=== PATIENT | male | born 1970 | race African-American/Black ===

== ENCOUNTER 2019-07-31 21:27 | Inpatient (IN) | payer BC ==
[2019-07-31 21:45] LABS: #Basophils 0.1 thou/uL (0.0-0.2); #Eosinphils 0.1 thou/uL (0.0-0.7); #Lymphocytes 3.2 thou/uL (1.20-3.40); #Monocytes 2.2 thou/uL (0.11-0.59); #Neutrophils 13.1 thou/uL (1.40-6.50); %Basophils 0.7 % (0.0-1.0); %Eosinophils 0.5 % (0.0-10.0); %Lymphocytes 17.2 % (21.0-51.0); %Monocytes 11.7 % (0.0-10.0); %Neutrophils 69.9 % (42.0-75.0); Hemoglobin 13.6 g/dL (14.0-18.0); Mean Corpuscular HGB CONC 33.9 g/dL (32.0-36.0); Mean Corpuscular Hemoglobin 29.4 pg (27.0-31.0); Mean Corpuscular Volume 86.7 fL (78.0-98.0); Platelet Count 379 thou/uL (130-400); RBC Distribution Width 13.5 % (11.5-14.5); Red Blood Cell (RBC) Count 4.63 mill/uL (4.70-6.10); White Blood Cell (WBC) Count 18.7 thou/uL (4.8-10.8)
[2019-07-31 22:13] LABS: ALT (SGPT) 16 U/L (8-55); AST (SGOT) 18 U/L (5-34); Albumin 2.4 g/dL (3.5-5.0); Alkaline Phosphatase 82 U/L (40-110); Anion Gap 11 mmol/L (10-20); BUN (Urea Nitrogen) 19 mg/dL (8.9-20.6); Bilirubin, Total 0.5 mg/dL (0.2-1.2); Calc. Creatinine Clearance 0 mL/min (70-130); Calcium 8.2 mg/dL (7.8-10.44); Carbon Dioxide 30 mmol/L (22-29); Chloride 102 mmol/L (98-107); Estimated GFR-MDRD Greater than 90; Globulin 3.3 g/dL (2.4-3.5); Glucose 137 mg/dL (70-105); Potassium 3.8 mmol/L (3.5-5.1); Protein, Total 5.7 g/dL (6.0-8.3); Sodium 139 mmol/L (136-145)
--- NOTE | 2019-07-31 23:30 | RAD ---
Exam: Chest one view HISTORY:Right-sided chest Comparison: 07/13/2003 FINDINGS: Cardiac silhouette: Normal Aorta: Unremarkable Pulmonary vessels: Normal Costophrenic angles: Clear LUNGS: Diminished lung volumes which may be due to poor inspiratory effort. Bibasilar interstitial op acities, right greater than left. Pneumothorax: None Osseous abnormalities: None IMPRESSION: Bibasilar interstitial opacities right greater than left. Correlate for atelectasis versu s aspiration/pneumonia.
[2019-08-01 00:03] LABS: Bacteria/HPF None Seen HPF (None Seen); Bilirubin Negative (Negative); Blood, Urine 2+ (Negative); Clarity Clear (Clear); Glucose, Urine (Dipstick) Normal (Negative); Leukocyte Negative Leu/uL (Negative); Mucous/LPF Rare LPF (<2+); Nitrite Negative (Negative); Protein, Urine (Dipstick) 300 mg/dL (Neg-Trace); Squamous Epithelial None Seen HPF (0-3); Urobilinogen Normal mg/dL (Less than 2); WBC/HPF 0-3 HPF (0-3)
--- NOTE | 2019-08-01 00:04 | CT ---
Exam: Abdomen CT without contrast Pelvic CT without contrast HISTORY: Right flank COMPARISON: None FINDINGS: Abdomen CT: Lung bases:Bibasilar consolidation may represent atelectasis, and/or pneumonia. Heart size: Cardiomegaly. No significant pericardial fluid Aorta: Limited evaluation due to technique. No evidence of dilatation Solid organs: Limited evaluation due to technique. Grossly no solid organ abnormality. 1.2 cm hypoden se nodule in the right adrenal gland has attenuation coefficient of -1 Hounsfield units, compatible with adenoma. Lymph nodes: No gastrohepatic, retrocrural or periportal lymphadenopathy Gallbladder: Contracted due to nonfasting state Mesentery: No mass, lymphadenopathy, free air or free fluid Kidneys: Horseshoe kidney. Bilaterally no hydronephrosis, nephrolithiasis or perinephric fat strandin g. Bilateral ureters have a normal caliber. No hydroureter, periureteral fat stranding or ureterolithiasis Alimentary canal: Limited evaluation due to the lack of oral contrast. There are a few proximal small bowel loops that are mildly dilated. There is a anterior abdominal wall hernia containing a segment of small bowel through the defect. The herniated loop does not appear to be incarcerated. How ever, the loops proximal to this focal herniation are slightly prominent. The loops distal to the herniation are decompressed. A partial obstructive process cannot be excluded. Unremarkable ileocecal junction. Normal caliber air-filled retrocecal appendix. Scattered fecal material in a nondistended, nondilated colon. CT PELVIS: No mass, adenopathy, free air or free fluid. Urinary bladder: Unremarkable. Osseous structures: No lytic or blastic lesions IMPRESSION: 1. Ventral abdominal wall hernia containing a segment of small bowel through the defect. The small randy wel segment does not appear to be incarcerated. However, there may be an associated partial small bowel obstruction. General surgical consultation is recommended. 2. Bibasilar lung parenchymal opacities which may represent atelectasis or pneumonia. Results of study discussed with Devika Ahuja08/01/2019 at 12:02 AM Code CR
[2019-08-01] MEDS ORDERED: cefTRIAXone\\ROCEPHIN 2 GM VIAL ONE (00:16)
[2019-08-01] MEDS ORDERED: Morphine 4 MG/ML VIAL ONE ×2 (00:43→01:55)
[2019-08-01] MEDS ORDERED: Azithromycin 500 MG VIAL ONE (00:50)
[2019-08-01 00:56] LABS: Lactic Acid 0.7 mmol/L (0.5-2.2)
[2019-08-01] MEDS ORDERED: Enoxaparin Sodium 100 MG/ML SYRINGE ONE (01:55)
[2019-08-01 03:07] LABS: Troponin I Less than 0.010 ng/mL (< 0.028)
[2019-08-01 06:10] LABS: Troponin I Less than 0.010 ng/mL (< 0.028)
[2019-08-01] MEDS ORDERED: Ondansetron PF 4 MG/2 ML Vial IVP PRN (07:08)
[2019-08-01] MEDS ORDERED: Cepastat Lozenges 1 LOZ PO PRN (07:10)
[2019-08-01] MEDS ORDERED: hydrALAZINE 20 MG/ML VIAL SLOW IVP PRN (07:10)
[2019-08-01] MEDS ORDERED: Sodium Chloride 0.65% Nasal 44 ML BOT EA NARE PRN (07:10)
[2019-08-01] MEDS ORDERED: Sodium Chloride 0.9% 1,000 ML IV SCH (07:15)
--- NOTE | 2019-08-01 07:53 | CT ---
PRELIMINARY REPORT/[facility]/EMERGENCY AFTER HOURS PROCEDURE This report was discussed with Yuko Pandya MD by Iris Duenas on Aug 01, 2019 01:23:00 CUSTOMER ADVISOR SPECIALIST. Addendum electronically signed by Iris Duenas on August 01, 2019 1:24:56 AM CUSTOMER ADVISOR SPECIALIST EXAM: CTA Chest with Intravenous Contrast CLINICAL HISTORY: ER 18... 49M presents to the ED with c/o right sided chest/Abdominal pain. Elevated D-dimer TECHNIQUE: Axial CTA images of the chest with intravenous contrast. MIP reconstructed images were created and re viewed. CONTRAST: With; ISOVUE 370, 80ml COMPARISON: None provided. FINDINGS: PULMONARY ARTERIES Right lower lobe segmental and subsegmental pulmonary artery filling defects. Lef t lower lobe subsegmental pulmonary arterial filling defects. AORTA No thoracic aortic aneurysm or dissection. LUNGS Consolidation, right middle lobe and right lower lobe. Bibasilar atelectasis. Small left upper and lower lobe subpleural blebs. 4 mm nodule left lung base. PLEURAL SPACES No pleural effusion. No pneumothorax. HEART AND MEDIASTINUM No cardiomegaly. no evidence of right heart strain. No significant pericardial effusion. LYMPH NODES No lymphadenopathy. BONES No focal osseous abnormality or acute fracture. CHEST WALL AND UPPER ABDOMEN Gaseous distention in the colon. Images through the upper abdomen are otherwise unremarkable. The chest wall is unremarkable. IMPRESSION: 1. Positive for pulmonary emboli (segmental and subsegmental) predominantly within the right lower, right middle and left lower lobes. 2. Consolidation within the right middle lobe and right lower lobe which may indicate pulmonary infa rction given the underlying pulmonary emboli, however underlying multifocal pneumonia is not excluded. Recommend follow-up to resolution. 3. 4 mm left lower lobe pulmonary nodule. Correlate with risk factors for malignancy and if high ri sk, consider follow-up in one year. ELECTRONICALLY SIGNED BY: Jayjay Madden M.D. Aug 01, 2019 1:21:37 AM CUSTOMER ADVISOR SPECIALIST This report is intended for review by the ordering physician only, in accordance of law. If you recei ve this report in error, please call [facility] at [phone]. FINAL REPORT CT ANGIOGRAM CHEST: DATE: 08/01/2019. COMPARISON: None. HISTORY: Right-sided chest pain, assess for pulmonary embolism. FINDINGS: CT angiogram chest obtained with IV contrast including coronal and oblique sagittal 3D reformatted im aging. No significant pleural, pericardial, or mediastinal fluid. Imaged upper abdomen appears grossly unremarkable. No axillary lymphadenopathy. There are mildly enlarged mediastinal lymph nodes, including right parat syl nodes measuring up to 1.2 cm in short axis dimension, 1.4 cm prevascular node, 1.4 cm left hilar node, 2.0 cm right hilar node, and 1.4 cm subcarinal node. Evidence of acute pulmonary arterial embolism is noted bilaterally involving the segmental and subseg mental pulmonary arteries of the right lower lobe and left lower lobe. Probable distal PE noted in right middle lobe as well. No pneumothorax is evident. There is a focal inferior posterior area of consolidation within the lingula. There is consolidation with air bronchogram formation within the inferior aspect of the right middle lobe and the posterior inferior aspect of both the right and left lower lobe, right greater than left. Incidental note is made of a 4 mm nodule within the left lower lobe on axial image 77 of uncertain cl inical significance. IMPRESSION: Bilateral pulmonary arterial emboli as detailed above. Multifocal airspace disease/consolidation whic h may signify pulmonary infarction and/or infectious pneumonitis/aspiration. Nonspecific lymphadenopathy noted within the chest. Recommend follow-up CT examination of the chest in 3-6 months following treatment to document resolution. Transcribed Date/Time: 08/01/2019 8:44 AM
[2019-08-01] MEDS ORDERED: Famotidine/PF 20 mg/2ml Vial SLOW IVP SCH (09:00)
[2019-08-01] MEDS ORDERED: Enoxaparin Sodium 60 MG/0.6 ML SYRINGE SC SCH (09:00)
[2019-08-01] MEDS ORDERED: Enoxaparin Sodium 40 MG/0.4 ML SYRINGE SC SCH ×2 (09:00)
[2019-08-01] MEDS: Losartan 25 MG TAB PO SCH ×2 (09:07→21:52)
--- NOTE | 2019-08-01 09:30 | PDOC.GSPN ---
Surgery Progress Note: Subj - Subjective Patient reports: tolerating a regular diet Narrative: Mr. Warner is a pleasant 49 year old male who presents today with new, right-sided "crampy" pain that started yesterday. He took Thi- [place] yesterday for the pain, which helped initially. However, the pain returned this morning with increased severity. His pain is a 10/10 currently, non-radiating, and is exacerbated with movement. He also reports shortness of breath, subjective fever yesterday, mild bloating, and absence of bowel movement in 2 days. Patient denies nausea, vomiting, previous hernia, or changes in urination. PMH: CKD, HTN, Hyperlipidemia PSH: None Allergies: NKA Surgery Progress Note: Obj - Vital signs Vital signs: Vital Signs - Most Recent Temp Pulse Resp BP Pulse Ox 97.6 F 93 15 163/88 H 94 L 08/01/19 07:20 08/01/19 07:08 08/01/19 07:20 08/01/19 07:08 08/01/19 07:08 - Physical Exam General: no distress Neck: no lymphadectomy, no masses Cardiovascular: regular rate and rhythm, no murmur Respiratory: clear to auscultation, normal expansion (Slight discomfort on right side with deep inspiration.) Abdomen: soft, non tender, positive bowel sounds (Present in all 4 quadrants, low and rumbling in nature.), distended, other Hernia: umbilical (Ventral hernia palpable superior to the umbilicus that is freely reducible and non-tender.) Musculoskeletal: normal posture, other (Very tender with palpation of right ribcage (~6-7th ribs at the midaxillary line)) Psychiatric: oriented to time, oriented to person, oriented to place Surgery Progress Note: Results - Labs Result Diagrams: 07/31/19 21:37 07/31/19 21:37 Lab results: Laboratory Results - last 24 hr 07/31/19 07/31/19 07/31/19 21:37 21:37 21:37 WBC 18.7 H RBC 4.63 L Hgb 13.6 L Hct 40.1 L MCV 86.7 MCH 29.4 MCHC 33.9 RDW 13.5 Plt Count 379 MPV 7.0 L Neutrophils % 69.9 Lymphocytes % 17.2 L Monocytes % 11.7 H Eosinophils % 0.5 Basophils % 0.7 Neutrophils # 13.1 H Lymphocytes # 3.2 Monocytes # 2.2 H Eosinophils # 0.1 Basophils # 0.1 D-Dimer Sodium 139 Potassium 3.8 Chloride 102 Carbon Dioxide 30 H Anion Gap 11 BUN 19 Creatinine 0.95 Estimated GFR (MDRD) Greater than 90 Glucose 137 H Lactic Acid Calcium 8.2 Total Bilirubin 0.5 AST 18 ALT 16 Alkaline Phosphatase 82 Troponin I 0.012 Serum Total Protein 5.7 L Albumin 2.4 L Globulin 3.3 Albumin/Globulin Ratio 0.7 L Lipase Urine Color Urine Clarity Urine pH Ur Specific Comfrey Urine Protein Urine Glucose (UA) Urine Ketones Urine Blood Urine Nitrite Urine Bilirubin Urine Urobilinogen Ur Leukocyte Esterase Urine RBC Urine WBC Ur Squamous Epith Cells Urine Bacteria Hyaline Casts Urine Mucus 07/31/19 07/31/19 07/31/19 21:37 23:25 23:45 WBC RBC Hgb Hct MCV MCH MCHC RDW Plt Count MPV Neutrophils % Lymphocytes % Monocytes % Eosinophils % Basophils % Neutrophils # Lymphocytes # Monocytes # Eosinophils # Basophils # D-Dimer 2.38 H Sodium Potassium Chloride Carbon Dioxide Anion Gap BUN Creatinine Estimated GFR (MDRD) Glucose Lactic Acid Calcium Total Bilirubin AST ALT Alkaline Phosphatase Troponin I Serum Total Protein Albumin Globulin Albumin/Globulin Ratio Lipase 46 Urine Color Light-Yellow Urine Clarity Clear Urine pH 6.0 Ur Specific Comfrey 1.018 Urine Protein 300 A Urine Glucose (UA) Normal Urine Ketones Negative Urine Blood 2+ A Urine Nitrite Negative Urine Bilirubin Negative Urine Urobilinogen Normal Ur Leukocyte Esterase Negative Urine RBC 11-20 A Urine WBC 0-3 Ur Squamous Epith Cells None Seen Urine Bacteria None Seen Hyaline Casts 21-50 A Urine Mucus Rare 08/01/19 08/01/19 08/01/19 00:24 02:32 05:22 WBC RBC Hgb Hct MCV MCH MCHC RDW Plt Count MPV Neutrophils % Lymphocytes % Monocytes % Eosinophils % Basophils % Neutrophils # Lymphocytes # Monocytes # Eosinophils # Basophils # D-Dimer Sodium Potassium Chloride Carbon Dioxide Anion Gap BUN Creatinine Estimated GFR (MDRD) Glucose Lactic Acid 0.7 Calcium Total Bilirubin AST ALT Alkaline Phosphatase Troponin I Less than 0.010 Less than 0.010 Serum Total Protein Albumin Globulin Albumin/Globulin Ratio Lipase Urine Color Urine Clarity Urine pH Ur Specific Comfrey Urine Protein Urine Glucose (UA) Urine Ketones Urine Blood Urine Nitrite Urine Bilirubin Urine Urobilinogen Ur Leukocyte Esterase Urine RBC Urine WBC Ur Squamous Epith Cells Urine Bacteria Hyaline Casts Urine Mucus Surgery Progress Note: A/P - Plan Plan: Mr. Warner is a pleasant 49 year old male with a history of HTN , CKD, and hyperlipidemia who presents today with right-sided pain. - Ventral Hernia -Presently stable -Ventral hernia freely reducible -
--- NOTE | 2019-08-01 09:55 | ULT ---
EXAM: Bilateral lower extremity venous Doppler US HISTORY: Pulmonary embolism FINDINGS: Grayscale, color-flow, Doppler evaluation, spectral analysis of the bilateral lower extremities venou s structures is performed with 2-D imaging. The bilateral common femoral, superficial femoral, popliteal, posterior tibial, proximal greater saphenous and profunda femoral veins are imaged. There is normal luminal compressibility, flow, and augmentation in the visualized deep venous structu res of the bilateral lower extremities. Incidental note is made of a avascular 5.4 x 2.5 x 2.1 cm Altamirano's cyst in the left popliteal fossa. IMPRESSION: No evidence of a deep vein thrombosis in either lower extremity.
[2019-08-01] MEDS: predniSONE 20 MG TAB PO SCH (10:44)
[2019-08-01] MEDS: Furosemide 80 MG TAB PO SCH (10:45)
--- NOTE | 2019-08-01 10:48 | ULT ---
RIGHT UPPER QUADRANT ULTRASOUND CLINICAL HISTORY: Upper abdominal pain. COMPARISON: None FINDINGS: Liver:Normal echotexture without focal mass. Intrahepatic bile ducts: No intrahepatic or extrahepatic biliary dilation.; Common bile duct: 2.5 mm. Gallbladder: Normal appearing. Richter's sign:None Main portal vein:Patent with hepatopedal flow. Pancreas:Visualized pancreas appears normal. Right kidney: Right kidney measures 9.2 x 5.3 x 6.5 cm. No focal renal lesion or hydronephrosis. Additional findings: None. IMPRESSION: Normal RUQ ultrasound.
--- NOTE | 2019-08-01 10:51 | CON ---
DATE OF CONSULTATION: HISTORY OF PRESENT ILLNESS: Timmy Woo is a 49-year-old black male patient with history of proteinuria and nephropathy followed by Dr. Timmons and other coper hand in the past since 1989. The patient reports having some upper abdominal discomfort intermittently in the last 2 to 3 weeks, but no nausea or vomiting. He has not had a bowel movement in two days. He presented with chest pain and CT angiogram revealed right lower lobe segmental pulmonary emboli. Ultrasound lower extremities undergoing now and preliminary results do not reveal any thrombus. The patient reports that he has some swelling in his legs at the end of the day. He has never had a cardiology workup. He has a longstanding history of hypertension. He is on antihypertensives. The patient works at an [employer] job and he is on his feet all day, walking all day, lifting and moving objects. He is very active. On admission, I was called 1 o'clock in the morning reporting findings of pulmonary emboli right lower lobe and CT abdomen and pelvis revealing a loop of small bowel and a hernia defect. The patient is unaware that he had a hernia. He has never had abdominal operation. Exam does reveal umbilical hernia and at the time of exam the defect is well felt and there is no incarcerated bowel. Considering, the patient has had abdominal discomfort 2-3 weeks and the findings on CAT scan may not explain that ultrasound of his gallbladder has been ordered for completeness. In addition, echocardiogram has been ordered due to his longstanding hypertension. His age of 49. He has lower extremity edema at times and his nephropathy. His renal function is normal in this admission. The patient has a right proximal forearm IV. I have educated the patient that he should avoid IVs above his wrist and preserve his veins at least strictly his left arm considering future need for dialysis access, although at this time, his renal function is normal. He is very compliant and following up with Dr. Timmons for control of his hypertension and for his nephropathy. There are no family members on dialysis. ALLERGIES: NONE. TOBACCO 2-3 CIGARS A DAY. ALCOHOL, RARELY ON WEEKENDS, 2-3 BEERS ON WEEKENDS, OTHERWISE NO USE. DRUG USE NONE. MEDICATIONS: 1. Lasix 80 mg a day. 2. Atorvastatin 20 mg at bedtime. 3. Potassium 20 mEq daily. 4. Magnesium 200 mg daily. 5. Losartan 25 mg b.i.d. 6. Prednisone 20 mg daily. PAST SURGICAL HISTORY: Noncontributory. PAST MEDICAL HISTORY: Hypertension, nephropathy, followed by Dr. Timmons. REVIEW OF SYSTEMS: Ten-point noncontributory, otherwise. PHYSICAL EXAMINATION: VITAL SIGNS: Height 5 feet 7 inches, 106 pounds, 16 BMI. Temperature 97.6, 93, 163/88. HEAD, EARS, EYES, NOSE AND THROAT: Unremarkable. LUNGS: Clear to auscultation. CARDIAC: Regular rate and rhythm without murmur or gallop. ABDOMEN: Soft, nontender, slight tympany upper abdomen, umbilical hernia defect without incarcerated bowel. The defect is well felt. It is nontender. EXTREMITIES: Unremarkable. Mild lower extremity edema, but not pitting. Renal function normal. BUN 19, creatinine 0.95, GFR 90. Liver function tests normal. White count 18 and hemoglobin 13. ASSESSMENT/PLAN: 1. Pulmonary emboli. Continue anticoagulation. 2. Umbilical hernia with intermittently bowel protruding. There is no evidence of incarceration. No indication for acute surgical intervention. We will resume his diet. We will establish an appointment for him to see me as an outpatient on 08/15/2019, 11:20 a.m. We will resume his diet. We will obtain a gallbladder ultrasound for thoroughness. It is possible that his intermittent small bowel protrusion through the umbilical hernia defect could be causing some intermittent upper abdominal discomfort, but this does not need intervention at this time. We will obtain a gallbladder ultrasound to assure there is no other pathology to explain intermittent upper abdominal discomfort. 3. Hypertension. 4. Nephropathy, proteinuria, followed by Dr. Timmons, on prednisone. 5. Obtain hypercoagulable workup. Job ID: [id number]
[2019-08-01] MEDS ORDERED: Morphine 4 MG/ML VIAL SLOW IVP PRN (11:02)
[2019-08-01 11:20] LABS: PTT 32.5 SEC (22.9-36.1)
[2019-08-01 11:21] LABS: D-Dimer Test 1.74 *mcg/mL (0.27-0.43); INR-International Normal Ratio 0.9; Prothrombin Time 11.7 SEC (12.0-14.7)
--- NOTE | 2019-08-01 11:37 | HP ---
PRIMARY CARE PHYSICIAN: Dr. Ilene Kaufman. REASON FOR ADMISSION: Pulmonary embolism, suspected pneumonia, suspected small-bowel obstruction. HISTORY OF PRESENT ILLNESS: A 49-year-old male, who reports that he has nephritic/nephrotic syndrome and he is following Dr. Timmons. He has this condition since 1989. The patient is on prednisone. The patient presented to emergency room last night with complaint of right-sided upper abdominal pain, which was worse with movement. There is no specific aggravating or relieving factor. Pain was crampy in nature, about 10/10 in intensity. The patient took yesterday Thi-Eastman and his pain improved, and this morning, he was having similar intense pain and that is why he decided to come to emergency room for evaluation. The patient reports that his last bowel movement was about 2 days ago. He denies any abdominal distention. He denies any nausea, vomiting, diarrhea, melena, or hematochezia. The patient also reports that for last 2 days, he was experiencing dyspnea on exertion as well as cough, but he also had some allergy symptoms including some sore throat and postnasal drainage. The patient denies any chest pain or hemoptysis. The patient reports that he has lower extremity edema, but he attributes to steroid. In the emergency room after admission, he had abdomen and pelvis CT scan, which showed ventral hernia with suspected small bowel obstruction. He had routine blood test, which showed elevated D-dimer and that is why he had CT angiography, which showed bibasilar interstitial opacity and suspected for pneumonia, and CT angiography also confirmed a segmental/subsegmental pulmonary embolism. After that diagnosis, the patient received Lovenox 1 mg/kg in the emergency room. The patient also received morphine and empiric antibiotic therapy with Rocephin and azithromycin as well as IV fluid, and subsequently, he was admitted to telemetry floor. REVIEW OF SYSTEMS: CONSTITUTIONAL: Negative for weight loss or gain, ability to conduct usual activities. SKIN: Negative for rash, itching. EYES: Negative for double vision, pain. ENT/MOUTH: Negative for nose bleeding, neck stiffness, pain, tenderness. CARDIOVASCULAR: Negative for palpitations, dyspnea on exertion, orthopnea. RESPIRATORY: Negative for shortness of breath, wheezing, cough, hemoptysis, fever or night sweats. GASTROINTESTINAL: Negative for poor appetite, abdominal pain, heartburn, nausea, vomiting, constipation, or diarrhea. GENITOURINARY: Negative for urgency, frequency, dysuria, nocturia. MUSCULOSKELETAL: Negative for pain, swelling. NEUROLOGIC/PSYCHIATRIC: Negative for anxiety, depression. ALLERGY/IMMUNOLOGIC: Negative for skin rash, bleeding tendency. Please see my HPI for pertinent positives and negatives. All other review of systems reviewed and negative except as mentioned in HPI. PAST MEDICAL HISTORY: Obesity, chronic kidney disease stage 3, nephrotic syndrome, hypertension, dyslipidemia. PAST SURGICAL HISTORY: History of kidney biopsy long time ago. PAST PSYCHIATRIC HISTORY: Reviewed and negative. SOCIAL HISTORY: The patient smokes Black and Mild Cigar, 3 cigars daily. He drinks alcohol on weekend. He denies any other illicit drug abuse. He is working in [employer]. FAMILY HISTORY: No strong family history of premature coronary artery disease, stroke, or cancer. No family history of blood clot disorder. ALLERGIES: NO KNOWN DRUG ALLERGIES. CURRENT HOME MEDICATIONS: 1. Losartan 25 mg p.o. twice daily. 2. Lasix 80 mg daily. 3. Potassium chloride 20 mEq p.o. daily. 4. Prednisone 20 mg daily. 5. Lipitor 20 mg at bedtime. 6. Magnesium 250 mg daily. EMERGENCY ROOM COURSE: The patient received; 1. Lovenox 1 mg/kg. 2. Morphine 4 mg x2. 3. Rocephin. 4. Azithromycin. 5. IV fluid. PHYSICAL EXAMINATION: VITAL SIGNS: On arrival, blood pressure 161/77, pulse 104, respiratory rate 20, temperature 98.7, saturation 95% on room air. Weight 105.7 kg. GENERAL: The patient is currently alert and oriented, in no acute distress. HEENT: Head; normocephalic and atraumatic. Eyes; pupils round and reactive to light. Extraocular muscles are intact. ENT, oropharynx within normal limits. Moist mucous membranes. No oral lesion. No pharyngeal erythema. No exudate. NECK: Supple. No JVD. No meningeal signs of irritation. LUNGS: Bibasilar air entry reduced with some crackles heard. No wheeze. No rhonchi. No accessory muscles of respiration in use. CARDIAC: S1 and S2 regular. No murmur. No gallop. No rub. ABDOMEN: Soft. Bowel sounds are present. Nontender. Umbilical hernia noted, which is reducible without any pain. BACK: The patient does have right-sided discomfort, but no point tenderness. EXTREMITIES: Upper extremities, passive movement of all joints are normal. Lower extremities, no edema. Good distal pulsation. No calf tenderness. SKIN: No skin rash. HEMATOLOGIC: No lymphadenopathy. PSYCHIATRIC: Normal affect. NEUROLOGIC: Nonfocal examination. IMAGING STUDIES: EKG showing sinus tachycardia. CT angiography reported as pulmonary embolism within right lower lobe, right middle lobe, and left lower lobe, consolidation within the right middle lobe, and right lower lobe pulmonary nodule. Chest x-ray, bibasilar atelectasis. Ultrasound of lower extremity, negative for any DVT. Abdomen and pelvis CT scan reported as ventral abdominal wall hernia, bilateral lung parenchymal opacity. LABORATORY DATA: CBC; WBC 18.7, hemoglobin 13.6, platelet 379. D-dimer 2.38. BMP; sodium 139, potassium 3.8, chloride 102, carbon dioxide 30, BUN 19, creatinine 0.95, glucose 137, calcium 8.2. Lactic acid 0.7. LFTs; AST 18, ALT 16, alkaline phosphatase 82, albumin 2.4. Troponin negative x3. Lipase 46. Urinalysis; proteinuria, rbc 11 to 20, hyaline casts 21 to 50. ASSESSMENT AND PLAN: 1. Bilateral pulmonary embolism. The patient has underlying hypercoagulable disorder including nephrotic syndrome that might be the culprit for underlying pulmonary embolism. Ultrasound of lower extremity, negative for deep venous thrombosis. The patient will be treated with Lovenox 1 mg/kg subcu twice daily. We will consult money market dealer for further evaluation. The patient will need long-term antibiotic therapy given underlying nephrotic syndrome. 2. Suspected pneumonia. The patient has leukocytosis and recent allergy symptoms along with consolidation in right middle lobe, right lower lobe, and this distribution of consolidation corresponds with pulmonary embolism, so suspected for underlying pulmonary infarction. Given leukocytosis, the patient has been started on empiric antibiotic therapy with Rocephin and azithromycin, which we will continue and we will ask Pulmonary through comment on this differential. 3. Leukocytosis may be related with underlying steroid as well as suspected pneumonia. We will repeat CBC. 4. Nephrotic syndrome. The patient has hypoalbuminemia, proteinuria. The patient has rbc and protein in his urinalysis. He is following Nephrology. He is on chronic steroid therapy. We will check random protein-creatinine ratio to rule out nephrotic range of proteinuria. We will also check lipid profile tomorrow for underlying hyperlipidemia. He will need outpatient followup with Nephrology. 5. Hypertension. We will continue losartan 25 mg twice daily. 6. Hypoalbuminemia, lower extremity edema. We will continue Lasix 80 mg p.o. daily. 7. Dyslipidemia. Continue Lipitor 20 mg p.o. at bedtime. 8. Morbid obesity. Dietary education given. Weight loss education given. Healthy lifestyle measure discussed with the patient. 9. Ventral hernia, suspected for intestinal obstruction. General Surgery consulted and they cleared him for this problem. We will continue diet. 10. Deep venous thrombosis prophylaxis. The patient is already on full dose of Lovenox therapy. 11. GI prophylaxis. Pepcid 20 mg p.o. b.i.d. CODE STATUS: The patient is full code. DISPOSITION PLAN: Based on clinical course. Plan of care discussed with the patient in detail. Job ID: [id number]
[2019-08-01 11:38] LABS: Protein C Activity 171 % (78-152)
--- NOTE | 2019-08-01 14:18 | CON ---
DATE OF CONSULTATION: 08/01/2019 CONSULTING PHYSICIAN: Stacy Ray MD. REASON FOR CONSULTATION: Pulmonary emboli. HISTORY OF PRESENT ILLNESS: The patient is a 49-year-old male, who came to the emergency room yesterday with increasing shortness of breath, right abdominal flank pain, and coughing up green sputum. Symptoms have started a couple of days prior to admission. He had a CT of the chest, which showed some lower lobe infiltrates along with some small right-sided pulmonary emboli. He does have a history of nephrotic syndrome, but has never had blood clots in the past. PAST MEDICAL HISTORY: 1. Chronic kidney disease secondary to nephrotic syndrome. 2. Hypertension. 3. Congestive heart failure - unknown type. 4. Hyperlipidemia. PAST SURGICAL HISTORY: None. SOCIAL HISTORY: Smokes cigars. Drinks alcohol on the weekends. Does not use illicit drugs. PSYCHIATRIC HISTORY: Unremarkable. MEDICATIONS: Prior to admission; 1. Losartan. 2. Lasix. 3. Potassium. 4. Prednisone. 5. Atorvastatin. 6. Magnesium. REVIEW OF SYSTEMS: Twelve-point review of systems is otherwise negative. ALLERGIES: NONE. PHYSICAL EXAMINATION: VITAL SIGNS: Temperature 97.6, pulse 93, respirations 15, O2 saturation 94% on room air, and blood pressure 163/88. HEENT: Pupils are reactive. Sclerae are anicteric. Oropharynx is clear. NECK: No adenopathy or JVD. LUNGS: Coarse rhonchi in the bases. CARDIAC: S1 and S2. Regular. ABDOMEN: Soft and nontender. He has small umbilical hernia, which was easily reducible. EXTREMITIES: No clubbing or cyanosis. He has 1+ edema from his knees downward. LABORATORY DATA: White blood cell count 18.7, hematocrit 40, and platelet count 379. D-dimer is 2.38. Sodium 139, potassium 3.8, chloride 102, CO2 of 30, BUN 19, creatinine 0.9, glucose 137, and albumin 2.4. Urinalysis shows gross proteinuria. IMAGING DATA: I reviewed the CT of the chest personally. ASSESSMENT: 1. Small pulmonary emboli. 2. Pneumonia - community-acquired, organism unknown. 3. Nephrotic syndrome. Discussion of the nephrotic syndrome probably leave him prone to develop pulmonary emboli. I am not sure that the pulmonary emboli is the true cause of his respiratory decompensation. RECOMMENDATIONS: 1. I would treat him with one of the oral anticoagulant such as Eliquis or Xarelto for 6 months and re-evaluate. 2. Agree with antibiotics for pneumonia. 3. Probably likely can be discharged by tomorrow. Job ID: [id number]
[2019-08-01] MEDS ORDERED: Iopamidol-370 76% 500 ML 1 ML ONE (14:48)
[2019-08-01 15:07] LABS: Cardiolipin IgA Ab 1.7 APL-U/mL (<14 Negative); Cardiolipin IgG Ab Less than 0.5 GPL-U/mL (<10 Negative); Cardiolipin IgM Ab 1.8 MPL-U/mL (<10 Negative); EliA APS New Method **** NEW METHOD ****
[2019-08-01 18:59] LABS: Creatinine, Urine 83.34 mg/dL (63-166)
[2019-08-01] MEDS ORDERED: Enoxaparin Sodium 100 MG/ML SYRINGE SC SCH (21:00)
[2019-08-01] MEDS: Apixaban 5 MG TAB PO SCH (21:52)
[2019-08-01] MEDS: Docusate 100 MG CAP PO SCH (21:52)
[2019-08-01] MEDS: Atorvastatin Calcium 20 MG TAB PO SCH (21:52)
[2019-08-02] MEDS: Acetaminophen 500 MG TAB PO PRN ×2 (02:41→22:06)
[2019-08-02 05:34] LABS: ALT (SGPT) 11 U/L (8-55); AST (SGOT) 10 U/L (5-34); Albumin 2.1 g/dL (3.5-5.0); Alkaline Phosphatase 77 U/L (40-110); Anion Gap 13 mmol/L (10-20); BUN (Urea Nitrogen) 18 mg/dL (8.9-20.6); Bilirubin, Total 0.7 mg/dL (0.2-1.2); Calc. Creatinine Clearance 138 mL/min (70-130); Calcium 8.1 mg/dL (7.8-10.44); Carbon Dioxide 25 mmol/L (22-29); Chloride 103 mmol/L (98-107); Estimated GFR-MDRD Greater than 90; Globulin 3.3 g/dL (2.4-3.5); Glucose 117 mg/dL (70-105); Potassium 4.1 mmol/L (3.5-5.1); Protein, Total 5.4 g/dL (6.0-8.3); Sodium 137 mmol/L (136-145)
[2019-08-02 06:05] LABS: Band 3 % (5-11); Hemoglobin 12.6 g/dL (14.0-18.0); Lymphocytes 13 % (21-51); MDiff Complete? YES; Mean Corpuscular HGB CONC 33.5 g/dL (32.0-36.0); Mean Corpuscular Hemoglobin 28.9 pg (27.0-31.0); Mean Corpuscular Volume 86.5 fL (78.0-98.0); Mean Platelet Volume 7.4 fL (7.4-10.4); Monocytes 13 % (0-10); Myelocyte 1 % (0-0); Neutrophil 70 % (42-75); Platelet Count 411 thou/uL (130-400); RBC Distribution Width 13.4 % (11.5-14.5); Red Blood Cell (RBC) Count 4.34 mill/uL (4.70-6.10); White Blood Cell (WBC) Count 23.8 thou/uL (4.8-10.8)
[2019-08-02 09:11] LABS: HEX PHOS LA Tube 1 41.4 SEC; HEX PHOS LA Tube 2 40.6 SEC; Hexagonal Phospholipid Neut 0.8 SEC (0-8.0)
[2019-08-02] MEDS: Docusate 100 MG CAP PO SCH ×2 (09:43→22:06)
[2019-08-02] MEDS: Azithromycin 250 MG TAB PO SCH (09:43)
[2019-08-02] MEDS: cefTRIAXone\\ROCEPHIN 1 GM in Sodium Chloride 0.9% 100 ML IVPB SCH (09:43)
[2019-08-02] MEDS: Furosemide 80 MG TAB PO SCH (09:44)
[2019-08-02] MEDS: Magnesium Oxide 400 MG TAB PO SCH (09:44)
[2019-08-02] MEDS: Apixaban 5 MG TAB PO SCH ×2 (09:44→22:06)
[2019-08-02] MEDS: Losartan 25 MG TAB PO SCH ×2 (09:44→22:06)
[2019-08-02] MEDS: predniSONE 20 MG TAB PO SCH (09:44)
--- NOTE | 2019-08-02 09:46 | PRG ---
DATE OF SERVICE: 08/02/2019 SUBJECTIVE: He is feeling better. He had no acute complaints today. OBJECTIVE: VITAL SIGNS: Temperature 99.8, pulse 94, respirations are 14, O2 saturation 94%, and blood pressure 133/79. HEENT: Clear. NECK: No JVD. CHEST: Clear anteriorly. CARDIAC: S1 and S2, regular. ABDOMEN: Soft. EXTREMITIES: No edema. LABORATORY DATA: White blood cell count 23.8, hematocrit 37.5, and platelet count 411. Sodium 137, potassium 4.1, chloride 103, CO2 of 25, BUN 18, creatinine 0.9, and glucose 117. ASSESSMENT: 1. Pulmonary emboli. 2. Nephrotic syndrome. 3. Pneumonia. PLAN: 1. He has been switched to Eliquis. The dose should be 10 mg b.i.d. for 7 days, then 5 mg b.i.d. thereafter for 6 months. 2. Continue the antibiotics for pneumonia. 3. Mobilize. 4. Hopefully, home soon. 5. If help needed over the weekend, please call Dr. Tracey. Job ID: [id number]
--- NOTE | 2019-08-02 11:46 | PDOC.HOSPP ---
- Subjective Encounter Date: 08/02/19 Encounter Time: 07:30 Subjective: Patient seen and examined. No new complaints. No overnight events only c/o is cough and BLANK - Objective Vital Signs & Weight: Vital Signs (12 hours) Temp Pulse Resp BP Pulse Ox 08/02/19 07:50 99.8 F H 94 14 133/79 94 L 08/02/19 03:06 99.4 F 100 18 145/78 H 95 Weight Admit Weight 233 lb 11.04 oz Weight 233 lb 11.04 oz Result Diagrams: 08/02/19 04:56 08/02/19 04:56 Radiology Reviewed by me: Yes EKG Reviewed by me: Yes Hospitalist ROS - Review of Systems Constitutional: denies: fever, chills, sweats, weakness, malaise, other ENT: denies: ear pain, ear discharge, nose pain, nose discharge, nose congestion , mouth pain, mouth swelling, throat pain, throat swelling, other Respiratory: reports: cough, SOB with excertion. denies: dry, shortness of breath, hemoptysis, pleuritic pain, sputum, wheezing, other Cardiovascular: denies: chest pain, palpitations, orthopnea, paroxysmal noc. dyspnea, edema, light headedness, other Gastrointestinal: denies: nausea, vomiting, abdominal pain, diarrhea, constipation, melena, hematochezia, other Genitourinary: denies: dysuria, frequency, incontinence, hematuria, retention, other Musculoskeletal: denies: neck pain, shoulder pain, arm pain, back pain, hand pain, leg pain, foot pain, other - Medication Medications: Active Medications Generic Name Dose Route Start Last Admin Trade Name Yasmin PRN Reason Stop Dose Admin Acetaminophen 1,000 mg 08/02/19 01:54 08/02/19 02:41 Tylenol PO 1,000 mg Q6H PRN Administration Headache/Fever or Pain Apixaban 10 mg 08/01/19 21:00 08/02/19 09:44 Eliquis PO 08/08/19 21:01 10 mg BID FELIX Administration Atorvastatin Calcium 20 mg 08/01/19 21:00 08/01/19 21:52 Lipitor PO 20 mg HS FELIX Administration Azithromycin 250 mg 08/02/19 09:00 08/02/19 09:43 Zithromax PO 08/05/19 09:01 250 mg DAILY FELIX Administration Docusate Sodium 100 mg 08/01/19 21:00 08/02/19 09:43 Colace PO 100 mg BID FELIX Administration Furosemide 80 mg 08/01/19 09:00 08/02/19 09:44 Lasix PO 80 mg DAILY FELIX Administration Ceftriaxone Sodium 1 gm/ 100 mls @ 200 mls/hr 08/02/19 10:00 08/02/19 09:43 Sodium Chloride IVPB 100 mls 1000 FELIX Administration Losartan Potassium 25 mg 08/01/19 09:00 08/02/19 09:44 Cozaar PO 25 mg BID FELIX Administration Magnesium Oxide 200 mg 08/02/19 09:00 08/02/19 09:44 Magnesium Oxide PO 200 mg DAILY FELIX Administration Morphine Sulfate 4 mg 08/01/19 11:02 08/01/19 12:14 Morphine SLOW IVP 4 mg Q4H PRN Administration Pain Potassium Chloride 20 meq 08/01/19 09:00 08/02/19 09:44 Klor-Con PO 20 meq DAILY FELIX Administration Prednisone 20 mg 08/01/19 09:00 08/02/19 09:44 Prednisone PO 20 mg DAILY FELIX Administration - Exam General Appearance: NAD, awake alert Eye: PERRL, anicteric sclera ENT: normocephalic atraumatic, no oropharyngeal lesions Neck: supple, symmetric, no JVD, no thyromegaly Heart: RRR, no murmur, no gallops, no rubs, normal peripheral pulses Respiratory: CTAB, no wheezes, no rales, no ronchi Gastrointestinal: soft, non-tender, non-distended, normal bowel sounds Extremities: no cyanosis, no clubbing, 1+ LE edema Skin: normal turgor, no lesions Neurological: no focal deficits Musculoskeletal: normal tone, normal strength Psychiatric: normal affect, normal behavior Hosp A/P (1) Bilateral pulmonary embolism Code(s): I26.99 - OTHER PULMONARY EMBOLISM WITHOUT ACUTE COR PULMONALE Status : Acute (2) Pneumonia Code(s): J18.9 - PNEUMONIA, UNSPECIFIED ORGANISM Status: Acute Qualifiers: Pneumonia type: due to unspecified organism Laterality: unspecified laterality Lung location: unspecified part of lung Qualified Code(s): J18.9 - Pneumonia, unspecified organism (3) Obesity (BMI 30-39.9) Code(s): E66.9 - OBESITY, UNSPECIFIED Status: Chronic (4) Nephrotic syndrome Code(s): N04.9 - NEPHROTIC SYNDROME WITH UNSPECIFIED MORPHOLOGIC CHANGES Status: Chronic (5) Hypertension Code(s): I10 - ESSENTIAL (PRIMARY) HYPERTENSION Status: Chronic Qualifiers: Hypertension type: essential hypertension Qualified Code(s): I10 - Essential (primary) hypertension (6) Dyslipidemia Code(s): E78.5 - HYPERLIPIDEMIA, UNSPECIFIED Status: Chronic (7) Hypoalbuminemia Code(s): E88.09 - OTH DISORDERS OF PLASMA-PROTEIN METABOLISM, NEC Status: Chronic - Plan old records reviewed/req, continue antibiotics 08/02/19 pulmonary recommendation appreciated hypercoagulable work up so far negative continue elliquis continue rocephin and azithromycin expecting discharge tomorrow medication reviewed and continue to provide supportive care
[2019-08-02] MEDS: Atorvastatin Calcium 20 MG TAB PO SCH (22:06)
[2019-08-02] MEDS ORDERED: Bisacodyl 10 MG SUPP PR SCH (22:45)
[2019-08-03] MEDS: Simethicone Chewable 80 MG TAB PO PRN ×3 (00:14→22:16)
[2019-08-03 05:18] LABS: Lactic Acid 0.7 mmol/L (0.5-2.2)
[2019-08-03 06:11] LABS: Band 3 % (5-11); Hemoglobin 12.7 g/dL (14.0-18.0); Lymphocytes 8 % (21-51); MDiff Complete? YES; Mean Corpuscular HGB CONC 33.8 g/dL (32.0-36.0); Mean Corpuscular Hemoglobin 29.2 pg (27.0-31.0); Mean Corpuscular Volume 86.4 fL (78.0-98.0); Mean Platelet Volume 7.7 fL (7.4-10.4); Monocytes 14 % (0-10); Neutrophil 75 % (42-75); Platelet Count 431 thou/uL (130-400); Platelet Morphology Comment Appears Increased; RBC Distribution Width 13.4 % (11.5-14.5); Red Blood Cell (RBC) Count 4.37 mill/uL (4.70-6.10); Target Cells SLIGHT = 2-5 cells (100X) (0-1/hpf); White Blood Cell (WBC) Count 28.7 thou/uL (4.8-10.8)
[2019-08-03 08:31] LABS: Anion Gap 11 mmol/L (10-20); BUN (Urea Nitrogen) 21 mg/dL (8.9-20.6); Calc. Creatinine Clearance 143 mL/min (70-130); Calcium 8.4 mg/dL (7.8-10.44); Carbon Dioxide 28 mmol/L (22-29); Chloride 102 mmol/L (98-107); Estimated GFR-MDRD Greater than 90; Glucose 107 mg/dL (70-105); Potassium 4.2 mmol/L (3.5-5.1); Sodium 137 mmol/L (136-145)
[2019-08-03] MEDS: Magnesium Oxide 400 MG TAB PO SCH (09:43)
[2019-08-03] MEDS: Losartan 25 MG TAB PO SCH ×2 (09:43→22:15)
[2019-08-03] MEDS: Docusate 100 MG CAP PO SCH ×2 (09:43→22:15)
[2019-08-03] MEDS: Azithromycin 250 MG TAB PO SCH (09:44)
[2019-08-03] MEDS: cefTRIAXone\\ROCEPHIN 1 GM in Sodium Chloride 0.9% 100 ML IVPB SCH (09:44)
[2019-08-03] MEDS: Apixaban 5 MG TAB PO SCH ×2 (09:44→22:15)
[2019-08-03] MEDS: predniSONE 20 MG TAB PO SCH (09:44)
[2019-08-03] MEDS: Furosemide 80 MG TAB PO SCH (09:44)
--- NOTE | 2019-08-03 10:06 | PDOC.HOSPP ---
- Subjective Encounter Date: 08/03/19 Encounter Time: 07:30 Subjective: Patient seen and examined. No new complaints. No overnight events, feels feverish but no documented fever - Objective Vital Signs & Weight: Vital Signs (12 hours) Temp Pulse Resp BP Pulse Ox 08/03/19 07:51 98.8 F 103 H 12 143/83 H 95 08/03/19 04:00 98.9 F 89 18 159/84 H Weight Admit Weight 233 lb 11.04 oz Weight 233 lb 11.04 oz I&O: 08/02/19 08/03/19 08/04/19 06:59 06:59 06:59 Intake Total 820 Balance 820 Result Diagrams: 08/03/19 04:21 08/03/19 07:50 EKG Reviewed by me: Yes Hospitalist ROS - Review of Systems Constitutional: denies: fever, chills, sweats, weakness, malaise, other ENT: denies: ear pain, ear discharge, nose pain, nose discharge, nose congestion , mouth pain, mouth swelling, throat pain, throat swelling, other Respiratory: reports: cough, SOB with excertion. denies: dry, shortness of breath, hemoptysis, pleuritic pain, sputum, wheezing, other Cardiovascular: denies: chest pain, palpitations, orthopnea, paroxysmal noc. dyspnea, edema, light headedness, other Gastrointestinal: denies: nausea, vomiting, abdominal pain, diarrhea, constipation, melena, hematochezia, other Genitourinary: denies: dysuria, frequency, incontinence, hematuria, retention, other Musculoskeletal: denies: neck pain, shoulder pain, arm pain, back pain, hand pain, leg pain, foot pain, other - Medication Medications: Active Medications Generic Name Dose Route Start Last Admin Trade Name Freq PRN Reason Stop Dose Admin Acetaminophen 1,000 mg 08/02/19 01:54 08/02/19 22:06 Tylenol PO 1,000 mg Q6H PRN Administration Headache/Fever or Pain Apixaban 10 mg 08/01/19 21:00 08/03/19 09:44 Eliquis PO 08/08/19 21:01 10 mg BID FELIX Administration Atorvastatin Calcium 20 mg 08/01/19 21:00 08/02/19 22:06 Lipitor PO 20 mg HS FELIX Administration Azithromycin 250 mg 08/02/19 09:00 08/03/19 09:44 Zithromax PO 08/05/19 09:01 250 mg DAILY FELIX Administration Docusate Sodium 100 mg 08/01/19 21:00 08/03/19 09:43 Colace PO 100 mg BID FELIX Administration Furosemide 80 mg 08/01/19 09:00 08/03/19 09:44 Lasix PO 80 mg DAILY FELIX Administration Ceftriaxone Sodium 1 gm/ 100 mls @ 200 mls/hr 08/02/19 10:00 08/03/19 09:44 Sodium Chloride IVPB 100 mls 1000 FELIX Administration Losartan Potassium 25 mg 08/01/19 09:00 08/03/19 09:43 Cozaar PO 25 mg BID FELIX Administration Magnesium Oxide 200 mg 08/02/19 09:00 08/03/19 09:43 Magnesium Oxide PO 200 mg DAILY FELIX Administration Morphine Sulfate 4 mg 08/01/19 11:02 08/01/19 12:14 Morphine SLOW IVP 4 mg Q4H PRN Administration Pain Potassium Chloride 20 meq 08/01/19 09:00 08/03/19 09:44 Klor-Con PO 20 meq DAILY FELIX Administration Prednisone 20 mg 08/01/19 09:00 08/03/19 09:44 Prednisone PO 20 mg DAILY FELIX Administration Simethicone 80 mg 08/02/19 22:27 08/03/19 00:14 Mylicon Chewable PO 80 mg PCHS PRN Administration Gas Pain - Exam General Appearance: NAD, awake alert Eye: PERRL, anicteric sclera ENT: normocephalic atraumatic, no oropharyngeal lesions Neck: supple, symmetric, no JVD Heart: RRR, no murmur, no gallops, no rubs Respiratory: CTAB, no wheezes, no rales, no ronchi Gastrointestinal: soft, non-tender, non-distended, normal bowel sounds Extremities: no cyanosis, no clubbing, 1+ LE edema Skin: normal turgor, no lesions Neurological: no focal deficits Hosp A/P (1) Bilateral pulmonary embolism Code(s): I26.99 - OTHER PULMONARY EMBOLISM WITHOUT ACUTE COR PULMONALE Status : Acute (2) Pneumonia Code(s): J18.9 - PNEUMONIA, UNSPECIFIED ORGANISM Status: Acute Qualifiers: Pneumonia type: due to unspecified organism Laterality: unspecified laterality Lung location: unspecified part of lung Qualified Code(s): J18.9 - Pneumonia, unspecified organism (3) Obesity (BMI 30-39.9) Code(s): E66.9 - OBESITY, UNSPECIFIED Status: Chronic (4) Nephrotic syndrome Code(s): N04.9 - NEPHROTIC SYNDROME WITH UNSPECIFIED MORPHOLOGIC CHANGES Status: Chronic (5) Hypertension Code(s): I10 - ESSENTIAL (PRIMARY) HYPERTENSION Status: Chronic Qualifiers: Hypertension type: essential hypertension Qualified Code(s): I10 - Essential (primary) hypertension (6) Dyslipidemia Code(s): E78.5 - HYPERLIPIDEMIA, UNSPECIFIED Status: Chronic (7) Hypoalbuminemia Code(s): E88.09 - OTH DISORDERS OF PLASMA-PROTEIN METABOLISM, NEC Status: Chronic - Plan old records reviewed/req, continue antibiotics 08/02/19 pulmonary recommendation appreciated hypercoagulable work up so far negative continue elliquis continue rocephin and azithromycin expecting discharge tomorrow medication reviewed and continue to provide supportive care 08/03/19 continue rocephin and azithromycin on discharge omnicef continue elliquis medication reviewed and continue to provide supportive care
[2019-08-03] MEDS: Atorvastatin Calcium 20 MG TAB PO SCH (22:15)
[2019-08-03] MEDS: Acetaminophen 500 MG TAB PO PRN (22:16)
[2019-08-04 05:12] LABS: Anion Gap 12 mmol/L (10-20); BUN (Urea Nitrogen) 25 mg/dL (8.9-20.6); Calc. Creatinine Clearance 156 mL/min (70-130); Calcium 8.4 mg/dL (7.8-10.44); Carbon Dioxide 26 mmol/L (22-29); Chloride 102 mmol/L (98-107); Estimated GFR-MDRD Greater than 90; Glucose 103 mg/dL (70-105); Sodium 136 mmol/L (136-145)
[2019-08-04 05:55] LABS: Band 5 % (5-11); Hemoglobin 11.6 g/dL (14.0-18.0); Lymphocytes 8 % (21-51); MDiff Complete? YES; Mean Corpuscular HGB CONC 33.7 g/dL (32.0-36.0); Mean Corpuscular Volume 86.2 fL (78.0-98.0); Mean Platelet Volume 7.3 fL (7.4-10.4); Monocytes 14 % (0-10); Neutrophil 73 % (42-75); Platelet Count 444 thou/uL (130-400); Platelet Morphology Comment Appears Increased; RBC Distribution Width 13.4 % (11.5-14.5); White Blood Cell (WBC) Count 24.7 thou/uL (4.8-10.8)
--- NOTE | 2019-08-04 08:43 | RAD ---
EXAM: Chest 2 views: HISTORY: Pneumonia COMPARISON: None. FINDINGS: There is a normal-sized cardiomediastinal silhouette. Consolidation is seen in the right lower lobe w ith adjacent pleural effusion. Atelectasis is seen in the left lung base. The bones are unremarkable. IMPRESSION: Right lower lobe pneumonia with adjacent pleural effusion.
[2019-08-04] MEDS: Furosemide 80 MG TAB PO SCH (09:40)
[2019-08-04] MEDS: Losartan 25 MG TAB PO SCH ×2 (09:40→22:19)
[2019-08-04] MEDS: Docusate 100 MG CAP PO SCH ×2 (09:40→22:18)
[2019-08-04] MEDS: cefTRIAXone\\ROCEPHIN 1 GM in Sodium Chloride 0.9% 100 ML IVPB SCH (09:40)
[2019-08-04] MEDS: Magnesium Oxide 400 MG TAB PO SCH (09:40)
[2019-08-04] MEDS: predniSONE 20 MG TAB PO SCH (09:40)
[2019-08-04] MEDS: Enoxaparin Sodium 120 MG/0.8 ML SYRINGE SC SCH ×2 (09:40→22:15)
[2019-08-04] MEDS: Azithromycin 250 MG TAB PO SCH (09:40)
--- NOTE | 2019-08-04 09:51 | PDOC.HOSPP ---
- Subjective Encounter Date: 08/04/19 Encounter Time: 07:20 Subjective: c/o hemoptysis, states that can not afford elliquis - Objective Vital Signs & Weight: Vital Signs (12 hours) Temp Pulse Resp BP BP Pulse Ox 08/04/19 07:31 94 L 08/04/19 07:15 98.3 F 87 16 139/77 94 L 08/04/19 04:00 98.6 F 92 20 140/74 94 L 08/03/19 23:57 98.4 F 93 20 135/71 93 L Weight Admit Weight 233 lb 11.04 oz Weight 233 lb 11.04 oz I&O: 08/03/19 08/04/19 08/05/19 06:59 06:59 06:59 Intake Total 820 Balance 820 Result Diagrams: 08/04/19 04:39 08/04/19 04:39 Radiology Reviewed by me: Yes (chest xray) EKG Reviewed by me: Yes Hospitalist ROS - Review of Systems Constitutional: denies: fever, chills, sweats, weakness, malaise, other Eyes: denies: pain, vision change, conjunctivae inflammation, eyelid inflammation, redness, other ENT: denies: ear pain, ear discharge, nose pain, nose discharge, nose congestion , mouth pain, mouth swelling, throat pain, throat swelling, other Respiratory: reports: cough, hemoptysis, SOB with excertion. denies: dry, shortness of breath, pleuritic pain, sputum, wheezing, other Cardiovascular: denies: chest pain, palpitations, orthopnea, paroxysmal noc. dyspnea, edema, light headedness, other Gastrointestinal: denies: nausea, vomiting, abdominal pain, diarrhea, constipation, melena, hematochezia, other Genitourinary: denies: dysuria, frequency, incontinence, hematuria, retention, other Musculoskeletal: denies: neck pain, shoulder pain, arm pain, back pain, hand pain, leg pain, foot pain, other - Medication Medications: Active Medications Generic Name Dose Route Start Last Admin Trade Name Freq PRN Reason Stop Dose Admin Acetaminophen 1,000 mg 08/02/19 01:54 08/03/19 22:16 Tylenol PO 1,000 mg Q6H PRN Administration Headache/Fever or Pain Atorvastatin Calcium 20 mg 08/01/19 21:00 08/03/19 22:15 Lipitor PO 20 mg HS FELIX Administration Azithromycin 250 mg 08/02/19 09:00 08/04/19 09:40 Zithromax PO 08/05/19 09:01 250 mg DAILY FELIX Administration Docusate Sodium 100 mg 08/01/19 21:00 08/04/19 09:40 Colace PO 100 mg BID FELIX Administration Enoxaparin Sodium 110 mg 08/04/19 09:00 08/04/19 09:40 Lovenox SC 110 mg 0900,2100 FELIX Administration Furosemide 80 mg 08/01/19 09:00 08/04/19 09:40 Lasix PO 80 mg DAILY FELIX Administration Ceftriaxone Sodium 1 gm/ 100 mls @ 200 mls/hr 08/02/19 10:00 08/04/19 09:40 Sodium Chloride IVPB 100 mls 1000 FELIX Administration Losartan Potassium 25 mg 08/01/19 09:00 08/04/19 09:40 Cozaar PO 25 mg BID FELIX Administration Magnesium Oxide 200 mg 08/02/19 09:00 08/04/19 09:40 Magnesium Oxide PO 200 mg DAILY FELIX Administration Morphine Sulfate 4 mg 08/01/19 11:02 08/01/19 12:14 Morphine SLOW IVP 4 mg Q4H PRN Administration Pain Potassium Chloride 20 meq 08/01/19 09:00 08/04/19 09:40 Klor-Con PO 20 meq DAILY FELIX Administration Prednisone 20 mg 08/01/19 09:00 08/04/19 09:40 Prednisone PO 20 mg DAILY FELIX Administration Simethicone 80 mg 08/02/19 22:27 08/03/19 22:16 Mylicon Chewable PO 80 mg PCHS PRN Administration Gas Pain - Exam General Appearance: NAD, awake alert Eye: PERRL, anicteric sclera ENT: normocephalic atraumatic, no oropharyngeal lesions Neck: supple, symmetric, no JVD Heart: RRR, no murmur, no gallops, no rubs Respiratory: no ronchi Respiratory - other findings: right lower lobe rales, with reduced air entry Gastrointestinal: soft, non-tender, non-distended, no palpable masses, no hepatomegaly Extremities: no cyanosis, no clubbing, 1+ LE edema Skin: normal turgor, no lesions Neurological: no focal deficits Musculoskeletal: normal tone, normal strength Psychiatric: normal affect, normal behavior Hosp A/P (1) Bilateral pulmonary embolism Code(s): I26.99 - OTHER PULMONARY EMBOLISM WITHOUT ACUTE COR PULMONALE Status : Acute (2) Pneumonia Code(s): J18.9 - PNEUMONIA, UNSPECIFIED ORGANISM Status: Acute Qualifiers: Pneumonia type: due to unspecified organism Laterality: right Lung location: lower lobe of lung Qualified Code(s): J18.9 - Pneumonia, unspecified organism (3) Obesity (BMI 30-39.9) Code(s): E66.9 - OBESITY, UNSPECIFIED Status: Chronic (4) Nephrotic syndrome Code(s): N04.9 - NEPHROTIC SYNDROME WITH UNSPECIFIED MORPHOLOGIC CHANGES Status: Chronic (5) Hypertension Code(s): I10 - ESSENTIAL (PRIMARY) HYPERTENSION Status: Chronic Qualifiers: Hypertension type: essential hypertension Qualified Code(s): I10 - Essential (primary) hypertension (6) Dyslipidemia Code(s): E78.5 - HYPERLIPIDEMIA, UNSPECIFIED Status: Chronic (7) Hypoalbuminemia Code(s): E88.09 - [facility] DISORDERS OF PLASMA-PROTEIN METABOLISM, NEC Status: Chronic - Plan old records reviewed/req, continue antibiotics 08/02/19 pulmonary recommendation appreciated hypercoagulable work up so far negative continue elliquis continue rocephin and azithromycin expecting discharge tomorrow medication reviewed and continue to provide supportive care 08/03/19 continue rocephin and azithromycin on discharge omnicef continue elliquis medication reviewed and continue to provide supportive care 08/04/19 chest xray done and reviewed pulmonary following continue rocephin and azithromycin will change to lovenox and warfarin for now until INR therapeutic, as pt can not afford elliquis wbc is slight better, will monitor daily inr
[2019-08-04] MEDS: Warfarin Sodium 5 MG TAB PO SCH (16:18)
--- NOTE | 2019-08-04 19:31 | PRG ---
DATE OF SERVICE: SERVICE: Pulmonary Medicine. INTERVAL HISTORY: I was asked to come back by and comment on the new chest x- ray that was performed. Otherwise, the patient indicates that he is feeling much improved. He is coughing and bringing up a little bit of green phlegm. Denies any fevers, chills, nausea or vomiting. There were no significant overnight events. PHYSICAL EXAMINATION: VITAL SIGNS: Afebrile. Pulse 103, blood pressure 142/80, respirations 14, and saturation 93% on room air. GENERAL: The patient is awake and alert, in no apparent distress. LUNGS: Wonderful air entry on the left. There is decreased air entry at the right base. Dullness to percussion is present. That being said, E to A egophony is actually present. HEART: Normal rate. Regular. ABDOMEN: Soft, nontender, and nondistended. Bowel sounds are positive. MUSCULOSKELETAL: No cyanosis or clubbing. There is no pitting in the bilateral lower extremities. NEUROLOGIC: Grossly nonfocal. LABORATORY DATA: WBC 24.7 and downtrending, hemoglobin 11.6, platelets 444,000 and rebounding nicely. INR 0.9. Basic metabolic profile is completely unremarkable. Anticardiolipin antibodies are negative. Blood cultures x2 and stool culture are negative. IMAGIN. Chest x-ray demonstrates an increasing infiltrate in the right base. They mention that there could be a pleural effusion over there as well. 2. CTA of the chest demonstrates extensive pulmonary emboli throughout bilateral lung myers with more extensive in the right lower lobe. 3. Bedside ultrasound demonstrates no evidence of a pleural effusion. There is densely consolidated lung in the right base. ASSESSMENT: 1. Acute pulmonary embolism. 2. Community-acquired pneumonia, possible. 3. Pulmonary infarction, suspected. DISCUSSION AND PLAN: We can continue the antibiotics as previously detailed. My suspicion is that we are dealing with a significant pulmonary infarction in the right lower lobe. I do not think this is progression of a severe infection. Bedside ultrasound did not demonstrate any evidence of a pleural effusion. He will require repeat chest x-ray in 4 to 6 weeks in the outpatient setting to verify this dense right lower lobe infiltrate has completely resolved. Certainly, if the patient gets worse, additional diagnostic investigation may be warranted. I do not have data that supports the use of tPA in acute pulmonary emboli in the absence of right ventricular heart strain. As such, I will just continue with anticoagulation through time. Certainly, if the patient's condition deteriorates, repeat chest x-ray and possible CT will be indicated, but for the time being, I do not think that is necessary. Dr. Curiel will resume care in the morning. Job ID: [id number] MTDD
[2019-08-04] MEDS: Atorvastatin Calcium 20 MG TAB PO SCH (22:19)
[2019-08-04] MEDS: Simethicone Chewable 80 MG TAB PO PRN (22:24)
[2019-08-05 05:29] LABS: Prothrombin Time 12.9 SEC (12.0-14.7)
[2019-08-05] MEDS: Magnesium Oxide 400 MG TAB PO SCH (08:37)
[2019-08-05] MEDS: Furosemide 80 MG TAB PO SCH (08:38)
[2019-08-05] MEDS: Losartan 25 MG TAB PO SCH ×2 (08:38→20:20)
[2019-08-05] MEDS: predniSONE 20 MG TAB PO SCH (08:39)
[2019-08-05] MEDS: Azithromycin 250 MG TAB PO SCH (08:39)
[2019-08-05] MEDS: Docusate 100 MG CAP PO SCH ×2 (08:39→20:20)
[2019-08-05] MEDS: Enoxaparin Sodium 120 MG/0.8 ML SYRINGE SC SCH ×2 (08:39→20:20)
[2019-08-05] MEDS: cefTRIAXone\\ROCEPHIN 1 GM in Sodium Chloride 0.9% 100 ML IVPB SCH (08:52)
[2019-08-05] MEDS: Sodium Chloride 0.65% Nasal 44 ML BOT EA NARE SCH ×3 (08:59→20:23)
--- NOTE | 2019-08-05 09:32 | PRG ---
DATE OF SERVICE: 08/05/2019 SUBJECTIVE: He is suffering from nasal bleeding. He says he feels blood dripping back of his throat and he is coughing that up. It looks like he was switched from Eliquis to Lovenox/warfarin yesterday. It is not clear why that was done, but I assume it may be because of the patient's current bleeding. He says his breathing is better. He is not having as much chest pain. OBJECTIVE: VITAL SIGNS: His temperature is 98.1, pulse 90, respirations 16, O2 saturation 94% on room air, blood pressure 146/85. HEENT: Unremarkable. NECK: No adenopathy or JVD. LUNGS: Few crackles in the right base. Left side clear. ABDOMEN: Soft. EXTREMITIES: No edema. CARDIAC: S1, S2. Regular. LABORATORY DATA: INR is 1.0. ASSESSMENT: 1. Pulmonary embolism. 2. Suspected pulmonary infarction. 3. Question of pneumonia. 4. Nasal bleeding. PLAN: The patient is continuing anticoagulation under the guidance of the hospitalist service. He may need ENT referral to further evaluate his nose to see if there is a reversible cause of bleeding. Job ID: [id number]
--- NOTE | 2019-08-05 10:26 | PDOC.HOSPP ---
- Subjective Encounter Date: 08/05/19 Encounter Time: 07:30 Subjective: pt has epistaxis, no fever, no chest pain - Objective Vital Signs & Weight: Vital Signs (12 hours) Temp Pulse Resp BP BP Pulse Ox 08/05/19 07:42 98.1 F 90 16 146/85 H 94 L 08/05/19 04:15 98.7 F 88 16 137/77 94 L 08/04/19 23:58 98.4 F 88 16 144/80 H 94 L Weight Admit Weight 233 lb 11.04 oz Weight 231 lb 11.293 oz Result Diagrams: 08/04/19 04:39 08/04/19 04:39 EKG Reviewed by me: Yes Hospitalist ROS - Review of Systems ENT: denies: ear pain, ear discharge, nose pain, nose discharge, nose congestion , mouth pain, mouth swelling, throat pain, throat swelling, other Respiratory: denies: cough, dry, shortness of breath, hemoptysis, SOB with excertion, pleuritic pain, sputum, wheezing, other Cardiovascular: denies: chest pain, palpitations, orthopnea, paroxysmal noc. dyspnea, edema, light headedness, other Gastrointestinal: denies: nausea, vomiting, abdominal pain, diarrhea, constipation, melena, hematochezia, other Genitourinary: denies: dysuria, frequency, incontinence, hematuria, retention, other - Medication Medications: Active Medications Generic Name Dose Route Start Last Admin Trade Name Freq PRN Reason Stop Dose Admin Acetaminophen 1,000 mg 08/02/19 01:54 08/03/19 22:16 Tylenol PO 1,000 mg Q6H PRN Administration Headache/Fever or Pain Atorvastatin Calcium 20 mg 08/01/19 21:00 08/04/19 22:19 Lipitor PO 20 mg HS FELIX Administration Docusate Sodium 100 mg 08/01/19 21:00 08/05/19 08:39 Colace PO Not Given BID FELIX Enoxaparin Sodium 110 mg 08/04/19 09:00 08/05/19 08:39 Lovenox SC 110 mg 0900,2100 FELIX Administration Furosemide 80 mg 08/01/19 09:00 08/05/19 08:38 Lasix PO 80 mg DAILY FELIX Administration Ceftriaxone Sodium 1 gm/ 100 mls @ 200 mls/hr 08/02/19 10:00 08/05/19 08:52 Sodium Chloride IVPB 100 mls 1000 FELIX Administration Losartan Potassium 25 mg 08/01/19 09:00 08/05/19 08:38 Cozaar PO 25 mg BID FELIX Administration Magnesium Oxide 200 mg 08/02/19 09:00 08/05/19 08:37 Magnesium Oxide PO 200 mg DAILY FELIX Administration Morphine Sulfate 4 mg 08/01/19 11:02 08/01/19 12:14 Morphine SLOW IVP 4 mg Q4H PRN Administration Pain Potassium Chloride 20 meq 08/01/19 09:00 08/05/19 08:40 Klor-Con PO 20 meq DAILY FELIX Administration Prednisone 20 mg 08/01/19 09:00 08/05/19 08:39 Prednisone PO 20 mg DAILY FELIX Administration Simethicone 80 mg 08/02/19 22:27 08/04/19 22:24 Mylicon Chewable PO 80 mg PCHS PRN Administration Gas Pain Sodium Chloride 0 ml 08/05/19 09:00 08/05/19 08:59 [place] Nasal [place] 0.65% EA NARE 2 spr TID FELIX Administration Warfarin Sodium 5 mg 08/04/19 17:00 08/04/19 16:18 Coumadin PO 5 mg 1700 FELIX Administration - Exam General Appearance: NAD, awake alert Eye: PERRL, anicteric sclera ENT: normocephalic atraumatic, no oropharyngeal lesions Neck: supple, symmetric, no JVD Heart: RRR, no murmur, no gallops Respiratory - other findings: right base rales and reduced air entry Gastrointestinal: soft, non-tender, non-distended Extremities: no cyanosis, no clubbing, no edema Skin: normal turgor, no lesions Neurological: no focal deficits Musculoskeletal: normal tone, normal strength Psychiatric: normal affect, normal behavior Hosp A/P (1) Bilateral pulmonary embolism Code(s): I26.99 - OTHER PULMONARY EMBOLISM WITHOUT ACUTE COR PULMONALE Status : Acute (2) Pneumonia Code(s): J18.9 - PNEUMONIA, UNSPECIFIED ORGANISM Status: Acute Qualifiers: Pneumonia type: due to unspecified organism Laterality: right Lung location: lower lobe of lung Qualified Code(s): J18.9 - Pneumonia, unspecified organism (3) Obesity (BMI 30-39.9) Code(s): E66.9 - OBESITY, UNSPECIFIED Status: Chronic (4) Nephrotic syndrome Code(s): N04.9 - NEPHROTIC SYNDROME WITH UNSPECIFIED MORPHOLOGIC CHANGES Status: Chronic (5) Hypertension Code(s): I10 - ESSENTIAL (PRIMARY) HYPERTENSION Status: Chronic Qualifiers: Hypertension type: essential hypertension Qualified Code(s): I10 - Essential (primary) hypertension (6) Dyslipidemia Code(s): E78.5 - HYPERLIPIDEMIA, UNSPECIFIED Status: Chronic (7) Hypoalbuminemia Code(s): E88.09 - OTH DISORDERS OF PLASMA-PROTEIN METABOLISM, NEC Status: Chronic - Plan old records reviewed/req, continue antibiotics 08/02/19 pulmonary recommendation appreciated hypercoagulable work up so far negative continue elliquis continue rocephin and azithromycin expecting discharge tomorrow medication reviewed and continue to provide supportive care 08/03/19 continue rocephin and azithromycin on discharge omnicef continue elliquis medication reviewed and continue to provide supportive care 08/04/19 chest xray done and reviewed pulmonary following continue rocephin and azithromycin will change to lovenox and warfarin for now until INR therapeutic, as pt can not afford elliquis wbc is slight better, will monitor daily inr 08/05/19 DC tele transfer to medical medication reviewed as above and symptomatic treatment will give ocean nasal spray, if bleeding persist or heavy will consider ENT evaluation await INR improvement
[2019-08-05] MEDS: Warfarin Sodium 5 MG TAB PO SCH (16:44)
[2019-08-05] MEDS: Atorvastatin Calcium 20 MG TAB PO SCH (20:20)
[2019-08-06 05:22] LABS: INR-International Normal Ratio 1.1; Prothrombin Time 14.7 SEC (12.0-14.7)
[2019-08-06 05:46] LABS: Anion Gap 11 mmol/L (10-20); BUN (Urea Nitrogen) 24 mg/dL (8.9-20.6); Calc. Creatinine Clearance 178 mL/min (70-130); Calcium 7.9 mg/dL (7.8-10.44); Carbon Dioxide 23 mmol/L (22-29); Chloride 107 mmol/L (98-107); Estimated GFR-MDRD Greater than 90; Glucose 113 mg/dL (70-105); Sodium 137 mmol/L (136-145)
[2019-08-06 05:51] LABS: Band 1 % (5-11); Eosinophils 3 % (0-10); Hemoglobin 11.3 g/dL (14.0-18.0); Lymphocytes 16 % (21-51); MDiff Complete? YES; Mean Corpuscular HGB CONC 31.8 g/dL (32.0-36.0); Mean Corpuscular Hemoglobin 27.5 pg (27.0-31.0); Mean Corpuscular Volume 86.4 fL (78.0-98.0); Mean Platelet Volume 7.3 fL (7.4-10.4); Metamyelocyte 1 % (0-0); Monocytes 11 % (0-10); Neutrophil 68 % (42-75); Platelet Count 514 thou/uL (130-400); RBC Distribution Width 13.4 % (11.5-14.5); Red Blood Cell (RBC) Count 4.09 mill/uL (4.70-6.10); White Blood Cell (WBC) Count 17.3 thou/uL (4.8-10.8)
[2019-08-06] MEDS: Magnesium Oxide 400 MG TAB PO SCH (08:34)
[2019-08-06] MEDS: Losartan 25 MG TAB PO SCH (08:34)
[2019-08-06] MEDS: Furosemide 80 MG TAB PO SCH (08:34)
[2019-08-06] MEDS: predniSONE 20 MG TAB PO SCH (08:34)
[2019-08-06] MEDS: Enoxaparin Sodium 120 MG/0.8 ML SYRINGE SC SCH (08:35)
[2019-08-06] MEDS: Docusate 100 MG CAP PO SCH (08:35)
[2019-08-06] MEDS: Sodium Chloride 0.65% Nasal 44 ML BOT EA NARE SCH ×2 (08:36→16:01)
[2019-08-06] MEDS ORDERED: HYDROcodone/Chlorphen Polis 5 ML UDCUP PO PRN (08:36)
[2019-08-06] MEDS: cefTRIAXone\\ROCEPHIN 1 GM in Sodium Chloride 0.9% 100 ML IVPB SCH (08:57)
--- NOTE | 2019-08-06 08:59 | PRG ---
DATE OF SERVICE: 08/06/2019 SUBJECTIVE: The patient is complaining of cough, had no acute changes overnight. OBJECTIVE: VITAL SIGNS: Temperature is 99.7, pulse 73, respirations 16, O2 saturation 98% on room air, and blood pressure 148/82. HEENT: Unremarkable. NECK: No adenopathy or JVD. LUNGS: Diminished breath sounds in the right base. CARDIAC: S1 and S2, regular. ABDOMEN: Soft. EXTREMITIES: No edema. ASSESSMENT: 1. Pulmonary embolism. 2. Bronchitis/possible pneumonia. 3. Nasal bleeding. 4. Nephrotic syndrome. PLAN: 1. The patient is currently being managed with warfarin and enoxaparin. He is still grossly subtherapeutic on his INR - 1.1 today. 2. We will add antitussive medication as the cough continues to give him difficulty. Job ID: [id number]
--- NOTE | 2019-08-06 10:15 | PDOC.HOSPP ---
- Subjective Encounter Date: 08/06/19 Encounter Time: 07:30 Subjective: has tinge amount of blood in sputum, had mild nasal bleeding but stopped - Objective Vital Signs & Weight: Vital Signs (12 hours) Temp Pulse Resp BP Pulse Ox 08/06/19 07:10 99.7 F H 83 16 148/82 H 98 08/06/19 04:00 98.9 F 90 18 167/82 H 94 L 08/06/19 00:00 99.6 F 87 15 146/87 H 94 L Weight Admit Weight 233 lb 11.04 oz Weight 231 lb 3.2 oz I&O: 08/05/19 08/06/19 08/07/19 06:59 06:59 06:59 Intake Total 800 Balance 800 Result Diagrams: 08/06/19 04:50 08/06/19 04:50 Hospitalist ROS - Review of Systems ENT: denies: ear pain, ear discharge, nose pain, nose discharge, nose congestion , mouth pain, mouth swelling, throat pain, throat swelling, other Respiratory: reports: hemoptysis. denies: cough, dry, shortness of breath, SOB with excertion, pleuritic pain, sputum, wheezing, other Cardiovascular: denies: chest pain, palpitations, orthopnea, paroxysmal noc. dyspnea, edema, light headedness, other Gastrointestinal: denies: nausea, vomiting, abdominal pain, diarrhea, constipation, melena, hematochezia, other Genitourinary: denies: dysuria, frequency, incontinence, hematuria, retention, other Musculoskeletal: denies: neck pain, shoulder pain, arm pain, back pain, hand pain, leg pain, foot pain, other - Medication Medications: Active Medications Generic Name Dose Route Start Last Admin Trade Name Freq PRN Reason Stop Dose Admin Acetaminophen 1,000 mg 08/02/19 01:54 08/03/19 22:16 Tylenol PO 1,000 mg Q6H PRN Administration Headache/Fever or Pain Atorvastatin Calcium 20 mg 08/01/19 21:00 08/05/19 20:20 Lipitor PO 20 mg HS FELIX Administration Docusate Sodium 100 mg 08/01/19 21:00 08/06/19 08:35 Colace PO Not Given BID FELIX Enoxaparin Sodium 110 mg 08/04/19 09:00 08/06/19 08:35 Lovenox SC 110 mg 0900,2100 FELIX Administration Furosemide 80 mg 08/01/19 09:00 08/06/19 08:34 Lasix PO 80 mg DAILY FELIX Administration Ceftriaxone Sodium 1 gm/ 100 mls @ 200 mls/hr 08/02/19 10:00 08/06/19 08:57 Sodium Chloride IVPB 100 mls 1000 FELIX Administration Losartan Potassium 25 mg 08/01/19 09:00 08/06/19 08:34 Cozaar PO 25 mg BID FELIX Administration Magnesium Oxide 200 mg 08/02/19 09:00 08/06/19 08:34 Magnesium Oxide PO 200 mg DAILY FELIX Administration Morphine Sulfate 4 mg 08/01/19 11:02 08/01/19 12:14 Morphine SLOW IVP 4 mg Q4H PRN Administration Pain Potassium Chloride 20 meq 08/01/19 09:00 08/06/19 08:35 Klor-Con PO 20 meq DAILY FELIX Administration Prednisone 20 mg 08/01/19 09:00 08/06/19 08:34 Prednisone PO 20 mg DAILY FELIX Administration Simethicone 80 mg 08/02/19 22:27 08/04/19 22:24 Mylicon Chewable PO 80 mg PCHS PRN Administration Gas Pain Sodium Chloride 0 ml 08/05/19 09:00 08/06/19 08:36 [place] Nasal [place] 0.65% EA NARE 2 spr TID FELIX Administration Throat Lozenges 1 yarelis 08/01/19 07:10 08/06/19 08:50 Cepastat Lozenges PO 1 yarelis Q2H PRN Administration Sore Throat Warfarin Sodium 5 mg 08/04/19 17:00 08/05/19 16:44 Coumadin PO 5 mg 1700 FELIX Administration - Exam General Appearance: NAD, awake alert Eye: PERRL, anicteric sclera ENT: normocephalic atraumatic, no oropharyngeal lesions Neck: supple, symmetric, no JVD Heart: RRR, no murmur, no gallops, no rubs Respiratory: no wheezes, no ronchi Respiratory - other findings: right base reduced air entry and rales Gastrointestinal: soft, non-tender, non-distended, normal bowel sounds Extremities: 1+ LE edema Skin: normal turgor, no lesions Neurological: no focal deficits Musculoskeletal: normal tone, normal strength Psychiatric: normal affect, normal behavior, A&O x 3 Hosp A/P (1) Bilateral pulmonary embolism Code(s): I26.99 - OTHER PULMONARY EMBOLISM WITHOUT ACUTE COR PULMONALE Status : Acute (2) Pneumonia Code(s): J18.9 - PNEUMONIA, UNSPECIFIED ORGANISM Status: Acute Qualifiers: Pneumonia type: due to unspecified organism Laterality: right Lung location: lower lobe of lung Qualified Code(s): J18.9 - Pneumonia, unspecified organism (3) Obesity (BMI 30-39.9) Code(s): E66.9 - OBESITY, UNSPECIFIED Status: Chronic (4) Nephrotic syndrome Code(s): N04.9 - NEPHROTIC SYNDROME WITH UNSPECIFIED MORPHOLOGIC CHANGES Status: Chronic (5) Hypertension Code(s): I10 - ESSENTIAL (PRIMARY) HYPERTENSION Status: Chronic Qualifiers: Hypertension type: essential hypertension Qualified Code(s): I10 - Essential (primary) hypertension (6) Dyslipidemia Code(s): E78.5 - HYPERLIPIDEMIA, UNSPECIFIED Status: Chronic (7) Hypoalbuminemia Code(s): E88.09 - OTH DISORDERS OF PLASMA-PROTEIN METABOLISM, NEC Status: Chronic - Plan old records reviewed/req, continue antibiotics 08/02/19 pulmonary recommendation appreciated hypercoagulable work up so far negative continue elliquis continue rocephin and azithromycin expecting discharge tomorrow medication reviewed and continue to provide supportive care 08/03/19 continue rocephin and azithromycin on discharge omnicef continue elliquis medication reviewed and continue to provide supportive care 08/04/19 chest xray done and reviewed pulmonary following continue rocephin and azithromycin will change to lovenox and warfarin for now until INR therapeutic, as pt can not afford elliquis wbc is slight better, will monitor daily inr 08/05/19 DC tele transfer to medical medication reviewed as above and symptomatic treatment will give ocean nasal spray, if bleeding persist or heavy will consider ENT evaluation await INR improvement 08/06/19 INR subtherapeutic discussed with pt about discharge planning to go home with lovenox and warfarin and outpt coumadine clinic follow up this plan depends on how much he has to pay with medication medication reviewed as above and continue to provide supportive care
[2019-08-06 10:55] VITALS: BMI 36.2
[2019-08-06 11:26] VITALS: BP 144/80; TEMP 99.2
--- NOTE | 2019-08-06 13:58 | PQF ---
CLINICAL DOCUMENTATION IMPROVEMENT CLARIFICATION FORM: ICD-10 Updated PLEASE DO AN ADDENDUM TO THE PROGRESS NOTE WITH ANY DOCUMENTATION UPDATES OR ADDITIONS AND CARRY THROUGH TO DC SUMMARY. THANK YOU. DATE: 08/06/19 ATTN: DR. ROYAL Please exercise your independent, professional judgment in responding to the clarification form. Clinical indicators are provided on the bottom of this form for your review Please check appropriate box(es): [ x ] Sepsis due to: (Pna, UTI, gangrenous gall bladder, etc.) __sepsis due to pneumonia [ ] SIRS due to non-infectious process (please specify etiology) [ ] with organ dysfunction [ x ] without organ dysfunction [ ] Localized infection without sepsis [ ] Other diagnosis [ ] Unable to determine In addition, please specify: Present on Admission (POA): [ x ] Yes [ ] No [ ] Unable to determine For continuity of documentation, please document condition throughout progress notes and discharge summary. Thank You. CLINICAL INDICATORS - SIGNS / SYMPTOMS / LABS / RESULTS AND LOCATION IN MR ER NOTE: PULSE 104 WBC 07/31: 18.7 WBC 08/02: 23.8 WBC 08/03: 28.7 RISKS: POSSIBLE PNEUMONIA (PULMONARY NOTE 08/06) PULMONARY EMBOLISM (PULMONARY NOTE 08/06) NEPHROTIC SYNDROME (PULMONARY NOTE 08/06) TREATMENT: IV AZITHROMYCIN (ER) IV ROCEPHIN (ER-08/06) IV FLUIDS (ER) BLOOD CULTURES (07/31) [employer] Winform Viewer (This form is maintained as a part of the permanent medical record) 2014 [employer]. All Rights Reserved MASON [email or web address] Office: [phone] [facility]
--- NOTE | 2019-08-06 15:45 | DIS ---
DATE OF ADMISSION: 08/01/2019 DATE OF DISCHARGE: 08/06/2019 PRIMARY CARE PHYSICIAN: Ilene Kaufman MD. DISCHARGE DISPOSITION: Home. PRIMARY DISCHARGE DIAGNOSES: Bilateral pulmonary embolism, community-acquired pneumonia, sepsis due to pneumonia. SECONDARY DISCHARGE DIAGNOSES: Hypertension, dyslipidemia, nephrotic syndrome, obesity with BMI 36, hypoalbuminemia. PRIMARY PROCEDURE/OPERATION: None. RADIOLOGICAL INVESTIGATION: Abdomen and pelvis CT scan, chest x-ray, CT angiography, ultrasound lower extremity, echocardiography, and repeat chest x-ray and abdomen ultrasound. SIGNIFICANT LABORATORY DATA: WBC 17.3, hemoglobin 11.3, platelet 514. INR 1.1, sodium 137, creatinine 0.76. Urinalysis showed proteinuria. Hypercoagulable workup negative. DISCHARGE MEDICATIONS: 1. Lovenox 1 mg/kg subcu twice daily for 3 days. 2. Warfarin 7.5 mg p.o. daily. 3. Omnicef 300 mg p.o. twice daily for 7 days. 4. Prednisone 20 mg daily. 5. Potassium chloride 20 mEq p.o. daily. 6. Magnesium 200 mg daily. 7. Losartan 25 mg b.i.d. 8. Lasix 80 mg daily. 9. Lipitor 20 mg p.o. at bedtime. CONTRAINDICATION: None. CODE STATUS: Full code. INPATIENT CHIEF OF PRODUCTION: Dr. Curiel was following for pulmonary embolism. Dr. Sahni was consulted for initial finding suspected for a ventral hernia. DISCHARGE PLAN: Posthospital, the patient is instructed to follow up with primary care physician, Dr. Sahni and Dr. Curiel and primary care physician in one week. HOSPITAL COURSE: A 49-year-old male who was admitted by me. Please see my HPI for further details. The patient was having right lower quadrant abdominal pain. He had CT abdomen and pelvis, which showed ventral hernia and reported as partial small-bowel obstruction and that is why we consulted General Surgery and they cleared him from that perspective, and the patient tolerated diet subsequently without any problem. General Surgery did ultrasound right upper quadrant because he was complaining of right lower quadrant pain and right upper quadrant ultrasound was completely unremarkable. The patient's right lower quadrant pain was related with pleurisy and he had repeat chest x-ray, which showed consolidation and pleural effusion. As this patient has underlying nephrotic syndrome and he had elevated D-dimer and that is why he had CT angiography, which showed segmental and subsegmental bilateral pulmonary embolism. The patient was admitted and he was treated with Lovenox 1 mg/kg and subsequently, we have to change to Eliquis therapy, but when we changed to Eliquis therapy and when the patient inquired about his medication cost, it was too much for him and that is why he was not able to afford as an outpatient basis, so we have to change back to Lovenox and warfarin. We inquired that the patient has very low co-pay on Lovenox and warfarin and that is why he agreed to go home on Lovenox and warfarin. The patient has been treated with Eliquis while in hospital as well as Lovenox while in hospital and now another three days of Lovenox therapy we are prescribing and subsequently, he will need only warfarin therapy to adjust INR between 2 and 3. Dietary education about warfarin therapy and monitoring discussed with the patient. The patient has appointment with primary care physician on Monday and he will have PT/INR checked on Friday, August 09, 2019, and based on that result, further decision will be made regarding warfarin dose. Regarding pneumonia, the patient was treated with Rocephin and azithromycin. On discharge, we changed to Omnicef. His WBC count is improving and the patient is stable and on room air. While in hospital, he also had minor epistaxis that was resolved. Hypercoagulable workup is negative. The patient is ambulatory, tolerating p.o. well and he is medically stable for discharge today. All consultants cleared him for discharge as well. The patient is seen and examined at bedside today. Please see my progress note from today for more detail. Job ID: [id number]
[2019-08-06] MEDS ORDERED: Warfarin Sodium 7.5 MG TAB PO SCH (17:00)
[2019-08-07 17:18] LABS: Factor VIII Test 628.2 % ACTIVE (56-157)
== END 2019-08-06 15:41 | disposition home or self-care (01) | DRG 871 ==
LOC: ERS 21:27 → ERHOLD 08-01 03:26 → 2SE 08-01 04:36
PROVIDERS: ADMIT Internal Medicine; ATTEND Internal Medicine
DX: A41.9 Sepsis, unspecified organism (principal); J18.9 Pneumonia, unspecified organism; I26.99 Other pulmonary embolism without acute cor pulmonale; I13.0 Hypertensive heart and chronic kidney disease with heart failure and stage 1 through stage 4 chronic kidney disease, or unspecified chronic kidney disease; E78.5 Hyperlipidemia, unspecified; E88.09 Other disorders of plasma-protein metabolism, not elsewhere classified; K43.9 Ventral hernia without obstruction or gangrene; E66.01 Morbid (severe) obesity due to excess calories; I50.9 Heart failure, unspecified; F17.290 Nicotine dependence, other tobacco product, uncomplicated; N18.9 Chronic kidney disease, unspecified; R04.0 Epistaxis; Z68.36 Body mass index [BMI] 36.0-36.9, adult; Z79.899 Other long term (current) drug therapy
CPT/HCPCS: 36415; 71045; 71046; 71275; 74176; 76705; 80048; 80053; 81003; 81015; 81240; 81241; 82274; 82570; 83090; 83605; 83690; 84156; 84484; 85025; 85240; 85300; 85303; 85305; 85307; 85379; 85598; 85610; 85730; 86147; 87040; 93005; 93306; 93970; 96365; 96367; 96372; 96375; 96376; J0456; J0696; J1650; J1956; J2270; J3490; J7512; Q9967; S0028

== ENCOUNTER 2019-08-26 08:34 | Outpatient (CLI) | payer BC ==
--- NOTE | 2019-08-26 08:54 | RAD ---
PA AND LATERAL VIEWS CHEST: HISTORY: Tachypnea, community-acquired pneumonia. COMPARISON: 08/04/2019. FINDINGS: The heart size is normal. There is consolidation of the right lung base with accompanying effusion. No pneumothoraces are seen. The heart size is normal. The left lung is clear. The opacity in the right lower hemithorax appears denser compared to the previous study. IMPRESSION: Right lower lobe pneumonia with effusion. POS: OFF
== END 2019-08-26 08:35 | disposition home or self-care (01) ==
LOC: BICRAD 08:34
PROVIDERS: ATTEND Internal Medicine
DX: J18.9 Pneumonia, unspecified organism (principal); J90 Pleural effusion, not elsewhere classified
CPT/HCPCS: 71046

== ENCOUNTER 2019-10-03 10:24 | Outpatient (CLI) | payer BC ==
--- NOTE | 2019-10-03 11:14 | RAD ---
PA AND LATERAL CHEST: Date: 10/03/2019 HISTORY: Dyspnea. COMPARISON: 08/26/2019 exam. FINDINGS: Heart size and mediastinum are within normal limits. The lungs are clear of any infiltrative process. The pleural changes in the right lung base have almost completely resolved. IMPRESSION: Almost complete resolution of the pleural and parenchymal changes of the right lung base. POS: ERNESTOH
== END 2019-10-03 10:25 | disposition home or self-care (01) ==
LOC: RAD 10:24
PROVIDERS: ATTEND Internal Medicine Critical Care Medicine
DX: R06.00 Dyspnea, unspecified (principal)
CPT/HCPCS: 36415; 71046; 85610

== ENCOUNTER 2019-11-01 06:04 | Day surgery (SDC) | payer BC ==
--- NOTE | 2019-10-31 07:21 | HP ---
HISTORY OF PRESENT ILLNESS: Timmy Woo is a 49-year-old white male patient who I recently saw in the hospital early 07/31 for umbilical hernia that was reduced as it was incarcerated. He had a pulmonary embolism at that time and was started on Coumadin. He works in the oil field. He is still on Coumadin. The hernia has been bothersome to him. Plan at this time is for robot mesh repair of his umbilical hernia. 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 He will hold his anticoagulation 5 days prior. He takes anticoagulation every day except for Monday and Monday. He has nephrotic syndrome, is on prednisone, followed by Dr. Timmons. ALLERGIES: NONE. SOCIAL HISTORY: Tobacco, cessation in 11/2018. Alcohol, none. The patient is . He works in the [employer]. PAST SURGICAL HISTORY: 1. Kidney biopsy. 2. [place] teeth extraction. 3. Lipoma cyst resection in the scalp. PAST MEDICAL HISTORY: 1. Nephrotic syndrome, followed by Dr. Timmons, on steroids. 2. History of pulmonary embolism, right lung, 07/31 diagnosed, on anticoagulation. 3. Umbilical hernia. 4. Hypertension. REVIEW OF SYSTEMS: Ten-point noncontributory otherwise. PHYSICAL EXAMINATION: VITAL SIGNS: 337 pounds and 67 inches, blood pressure 161/87. HEAD, EARS, EYES, NOSE, AND THROAT: Unremarkable. LUNGS: Clear to auscultation. CARDIAC: Regular rhythm without murmur or gallop. ABDOMEN: Soft. Umbilical hernia reducible, mildly obese. EXTREMITIES: Unremarkable. ASSESSMENT AND PLAN: 1. Umbilical hernia. Plan robot mesh repair outpatient. May need to hold his anticoagulation 5 days prior. We will check PT/INR on the morning of surgery. 2. Chronic kidney disease and nephrotic syndrome, on steroids. He will need stressed perioperative dose steroid. 3. Hypertension and diabetes. Job ID: [id number]
[2019-10-31 10:12] VITALS: BMI 38.7
[2019-11-01] MEDS ORDERED: Acetaminophen 500 MG TAB ONE (07:07)
[2019-11-01] MEDS ORDERED: Ketorolac Tromethamine 30 MG/ML VIAL ONE (07:07)
[2019-11-01] MEDS ORDERED: Gabapentin 300 MG CAP ONE (07:07)
[2019-11-01 07:28] LABS: #Basophils 0.2 thou/uL (0.0-0.2); #Eosinphils 0.2 thou/uL (0.0-0.7); #Lymphocytes 4.3 thou/uL (1.20-3.40); #Monocytes 1.3 thou/uL (0.11-0.59); #Neutrophils 6.4 thou/uL (1.40-6.50); %Basophils 1.4 % (0.0-1.0); %Eosinophils 1.4 % (0.0-10.0); %Monocytes 10.7 % (0.0-10.0); %Neutrophils 51.6 % (42.0-75.0); Hemoglobin 11.6 g/dL (14.0-18.0); Mean Corpuscular HGB CONC 33.7 g/dL (32.0-36.0); Mean Corpuscular Hemoglobin 29.1 pg (27.0-31.0); Mean Corpuscular Volume 86.4 fL (78.0-98.0); Platelet Count 423 thou/uL (130-400); RBC Distribution Width 15.4 % (11.5-14.5); White Blood Cell (WBC) Count 12.4 thou/uL (4.8-10.8)
[2019-11-01 07:48] LABS: Anion Gap 9 mmol/L (10-20); BUN (Urea Nitrogen) 16 mg/dL (8.9-20.6); Calc. Creatinine Clearance 188 mL/min (70-130); Calcium 7.7 mg/dL (7.8-10.44); Carbon Dioxide 29 mmol/L (22-29); Chloride 107 mmol/L (98-107); Estimated GFR-MDRD Greater than 90; Glucose 99 mg/dL (70-105); Potassium 3.6 mmol/L (3.5-5.1); Sodium 141 mmol/L (136-145)
[2019-11-01] MEDS ORDERED: Lidocaine 1% w/Epinephrine 1:100K 20 ML VIAL ONE (07:49)
[2019-11-01] MEDS ORDERED: Bupivacaine PF 0.5% 30 ML VIAL ONE (07:49)
[2019-11-01] MEDS ORDERED: Fentanyl 100 MCG/2 ML VIAL ONE ×4 (07:55→10:14)
--- NOTE | 2019-11-01 09:41 | OP ---
DATE OF PROCEDURE: 11/01/2019 PREOPERATIVE DIAGNOSIS: Umbilical hernia, symptomatic. POSTOPERATIVE DIAGNOSIS: Umbilical hernia, symptomatic. PROCEDURE PERFORMED: Robot repair of umbilical hernia with Ventralight mesh, reinforcement of fascial closure, 9 cm in diameter mesh used. ANESTHESIA: General and local with 0.5% Marcaine with epinephrine 30 mL, mixed with 1% Xylocaine with epinephrine 20 mL. DESCRIPTION OF PROCEDURE: The patient was taken to the operating room where under general anesthesia in supine position, abdomen was prepared with ChloraPrep and draped in routine fashion. A left subxiphoid incision was made and pneumoperitoneum to 15 mmHg was obtained with a Veress needle, replacing with an 11 balloon port and video laparoscope inserted. Bilateral far lateral subcostal incision made and 9-mm port was placed. The robot was docked and positioned with the patient in slight Trendelenburg and robot hernia repair undertaken, clearing some fatty tissue from around the umbilicus, 3 cm defect. Defect closed with 2 interrupted suture of #1 STRATAFIX suture, reducing pneumoperitoneum to 8 mmHg. Ventralight mesh secured with continuous suture of #1 Ventralight suture and #2-0 Stratafix suture. Once the mesh was secured, needles retrieved. The robot was undocked. The trocars removed. Skin incisions were approximated with subdermal 4-0 Monocryl and [place] glue applied. The patient tolerated the procedure well. Job ID: [id number]
[2019-11-01] MEDS ORDERED: Glycopyrrolate 0.2 MG/ML 5 ML SYRINGE ONE (10:10)
[2019-11-01] MEDS ORDERED: PROPOFOL 200 MG/20 ML VIAL ONE (10:10)
[2019-11-01] MEDS ORDERED: Ondansetron PF 4 MG/2 ML Vial ONE (10:10)
[2019-11-01] MEDS ORDERED: Rocuronium Bromide 10 MG/ML (10ML VIAL) ONE (10:10)
[2019-11-01] MEDS ORDERED: Dexamethasone 20 MG/5 ML VIAL ONE (10:10)
[2019-11-01] MEDS ORDERED: Lidocaine 1% PF 5 ML VIAL ONE (10:10)
[2019-11-01] MEDS ORDERED: HYDROcodone/Acetaminophen 5/325 mg Tablet ONE (11:25)
== END 2019-11-01 12:17 | disposition home or self-care (01) ==
LOC: SDC 06:04
PROVIDERS: ATTEND Specialist
PROC: 0WUF4JZ Supplement Abdominal Wall with Synthetic Substitute, Percutaneous Endoscopic Approach (ICD-10-PCS; principal; 2019-11-01)
DX: K42.9 Umbilical hernia without obstruction or gangrene (principal); I12.9 Hypertensive chronic kidney disease with stage 1 through stage 4 chronic kidney disease, or unspecified chronic kidney disease; E11.21 Type 2 diabetes mellitus with diabetic nephropathy; E11.22 Type 2 diabetes mellitus with diabetic chronic kidney disease; N18.9 Chronic kidney disease, unspecified; Z79.01 Long term (current) use of anticoagulants; I26.99 Other pulmonary embolism without acute cor pulmonale; Z79.899 Other long term (current) drug therapy
CPT/HCPCS: 36415; 80048; 85025; 85730; 93005; 93010; C1781; J0690; J1100; J1885; J2001; J2405; J2704; J3010; S0020

== ENCOUNTER 2022-03-17 10:24 | Outpatient (CLI) | payer BC ==
[2022-03-17 11:21] LABS: #Basophils 0.1 10x3/uL (0.0-0.2); #Eosinphils 0.1 10x3/uL (0.0-0.5); #Monocytes 1.1 10x3/uL (0.0-1.1); #Neutrophils 11.2 10x3/uL (1.5-8.4); %Basophils 0.4 % (0.0-2.0); %Eosinophils 0.5 % (0.0-6.0); %Lymphocytes 16.3 % (18.0-47.0); %Monocytes 7.5 % (0.0-10.0); %Neutrophils 74.3 % (40.0-75.0); Hemoglobin 12.5 g/dL (13.5-17.5); Mean Corpuscular HGB CONC 34.3 g/dL (32.0-36.0); Mean Corpuscular Hemoglobin 28.5 pg (27.0-33.0); Mean Corpuscular Volume 82.9 fl (81.2-95.1); Mean Platelet Volume 9.5 fl (7.4-10.4); Platelet Count 467 10x3/uL (150-450); RBC Distribution Width 14.6 % (11.5-14.5); Red Blood Cell (RBC) Count 4.39 10x6/uL (4.32-5.72); White Blood Cell (WBC) Count 15.1 10x3/uL (3.5-10.5)
[2022-03-17 11:27] LABS: INR-International Normal Ratio 1.1; Prothrombin Time 11.4 sec (9.5-12.1)
[2022-03-17 11:33] LABS: Anion Gap 4 mmol/L (10-20); BUN (Urea Nitrogen) 45 mg/dL (8.9-20.6); Calc. Creatinine Clearance 0 mL/min (70-130); Calcium 9.2 mg/dL (7.8-10.44); Carbon Dioxide 29 mmol/L (22-29); Chloride 98 mmol/L (98-107); Estimated GFR 75; Glucose 132 mg/dL (70-105); Potassium 4.2 mmol/L (3.5-5.1); Sodium 127 mmol/L (136-145)
== END 2022-03-17 10:25 | disposition home or self-care (01) ==
LOC: LABBT 10:24
PROVIDERS: ATTEND Orthopaedic Surgery
DX: Z01.812 Encounter for preprocedural laboratory examination (principal); M17.12 Unilateral primary osteoarthritis, left knee; Z20.822 Contact with and (suspected) exposure to COVID-19
CPT/HCPCS: 80048; 85025; 85610; 87081; 87811

== ENCOUNTER 2022-07-11 18:00 | Outpatient (CLI) | payer BC | END 2022-07-11 18:01 | disposition home or self-care (01) | LOC: SLEEPLAB 18:00 | PROVIDERS: ATTEND Internal Medicine | DX: G47.33 Obstructive sleep apnea (adult) (pediatric) (principal); R53.83 Other fatigue; I10 Essential (primary) hypertension; R06.83 Snoring; G47.00 Insomnia, unspecified; E66.9 Obesity, unspecified; Z68.39 Body mass index [BMI] 39.0-39.9, adult | CPT/HCPCS: 95800 ==

== ENCOUNTER 2023-03-07 05:31 | Observation (INO) | payer BC ==
[2023-03-03 10:24] VITALS: BMI 36.7
[2023-03-07] MEDS ORDERED: Vancomycin (BATCH) 1.5 GRAM/300 ML BAG ONE (06:01)
[2023-03-07] MEDS ORDERED: Sodium Chloride 0.9% 100 ML ONE ×2 (06:01→06:51)
[2023-03-07] MEDS ORDERED: Tranexamic Acid 1,000 MG/10 ML VIAL ONE ×2 (06:01→10:03)
[2023-03-07] MEDS ORDERED: fentaNYL PF 100 MCG/2 ML SYRINGE ONE (06:20)
[2023-03-07] MEDS ORDERED: Midazolam HCl 2 mg/2 ml Vial ONE (06:20)
[2023-03-07] MEDS ORDERED: Bupivacaine PF 0.5% 30 ML VIAL ONE ×2 (06:24→07:43)
[2023-03-07] MEDS ORDERED: Promethazine HCl 25 MG/ML VIAL IM PRN ×3 (06:42→09:42)
[2023-03-07] MEDS ORDERED: HYDROmorphone 2 MG/ML VIAL SLOW IVP PRN (06:42)
[2023-03-07] MEDS ORDERED: Ondansetron HCl/PF 4 MG/2 ML Vial IVP PRN (06:42)
[2023-03-07] MEDS ORDERED: CEFAZOLIN 2 GM VIAL ONE (06:51)
[2023-03-07] MEDS ORDERED: Dexamethasone 20 MG/5 ML VIAL ONE (06:55)
[2023-03-07] MEDS ORDERED: PROPOFOL 200 MG/20 ML VIAL ONE (06:55)
[2023-03-07] MEDS ORDERED: Bupivacaine HCl 0.5%/Epinephrine 1:200,000/PF 30 ml Vial ONE (06:55)
[2023-03-07] MEDS ORDERED: Ondansetron PF 4 MG/2 ML Vial ONE (06:55)
[2023-03-07] MEDS ORDERED: Lidocaine 1% PF 5 ML VIAL ONE (06:55)
[2023-03-07] MEDS ORDERED: PHENYLEPHRINE-NS 100 MCG/ML 10 ML SYRINGE ONE (06:55)
[2023-03-07] MEDS ORDERED: Ketorolac Tromethamine 30 MG/ML VIAL ONE (06:55)
[2023-03-07] MEDS ORDERED: fentaNYL 50 mcg/mL 1 mL Vial SLOW IVP PRN (07:37)
[2023-03-07] MEDS ORDERED: Ondansetron PF 4 MG/2 ML Vial IVP PRN ×2 (07:45→09:42)
[2023-03-07] MEDS ORDERED: HYDROcodone/Acetaminophen 10/325 mg Tablet PO PRN (07:45)
[2023-03-07] MEDS ORDERED: Zolpidem Tartrate 5 MG TAB PO PRN (07:45)
[2023-03-07] MEDS ORDERED: Ropivacaine 0.2% 550 ML 550 ML NERVE BLCK SCH (07:45)
[2023-03-07] MEDS ORDERED: traMADol HCl 50 MG TAB PO PRN ×2 (07:45)
[2023-03-07] MEDS ORDERED: fentaNYL 50 mcg/mL 1 mL Vial ONE ×3 (07:47→11:54)
[2023-03-07] MEDS ORDERED: HYDROmorphone 2 MG/ML VIAL ONE (07:55)
[2023-03-07] MEDS ORDERED: HYDROmorphone 0.5 MG/0.5 ML SYRINGE ONE ×2 (09:07→11:54)
[2023-03-07] MEDS ORDERED: Labetalol HCl 100 MG/20 ML VIAL ONE (09:16)
[2023-03-07] MEDS ORDERED: Acetaminophen 325 MG TAB PO PRN (09:42)
[2023-03-07] MEDS ORDERED: diphenhydrAMINE 25 MG CAP PO PRN (09:42)
[2023-03-07] MEDS ORDERED: hydrALAZINE 20 MG/ML VIAL ONE (10:21)
[2023-03-07] MEDS ORDERED: Multivitamin W/ Minerals 1 TAB PO SCH (13:00)
[2023-03-07] MEDS ORDERED: Ferrous Gluconate 324 MG TAB PO SCH (13:00)
[2023-03-07] MEDS ORDERED: Senokot S 8.6-50 MG TAB PO SCH (13:00)
[2023-03-07] MEDS: HYDROcodone/Acetaminophen 10/325 mg Tablet PO PRN ×3 (14:22→23:56)
[2023-03-07] MEDS: CEFAZOLIN 2 GM in Sodium Chloride 0.9% 100 ML IVPB SCH ×2 (14:26→20:13)
[2023-03-07] MEDS: 1/2 NS w/KCL 20 mEq 1,000 ML IV SCH ×3 (14:26→21:22)
[2023-03-07] MEDS ORDERED: hydrALAZINE 25 MG TAB PO PRN (15:16)
[2023-03-07] MEDS: Ferrous Gluconate 324 MG TAB PO SCH (20:08)
[2023-03-07] MEDS: Senokot S 8.6-50 MG TAB PO SCH (20:09)
[2023-03-07] MEDS: Losartan 25 MG TAB PO SCH (20:09)
[2023-03-07] MEDS: cloNIDine 0.1 MG TAB PO SCH (20:09)
[2023-03-07] MEDS: Atorvastatin Calcium 20 MG TAB PO SCH (20:09)
[2023-03-07] MEDS: Tacrolimus 1 MG CAP PO SCH (20:12)
[2023-03-07] MEDS: Zolpidem Tartrate 5 MG TAB PO PRN (21:22)
[2023-03-08] MEDS: HYDROcodone/Acetaminophen 10/325 mg Tablet PO PRN ×5 (04:02→22:41)
[2023-03-08 06:34] LABS: #Monocytes 3.6 thou/uL (0.11-0.59); %Basophils 0.1 % (0.0-1.0); %Eosinophils 0.1 % (0.0-10.0); %Lymphocytes 7.2 % (21.0-51.0); %Monocytes 15.3 % (0.0-10.0); %Neutrophils 76.4 % (42.0-75.0); Hemoglobin 10.3 g/dL (14.0-18.0); Mean Corpuscular Hemoglobin 30.1 pg (27.0-31.0); Mean Platelet Volume 10.4 fL (7.4-10.4); Platelet Count 262 10x3/uL (130-400); RBC Distribution Width 16.1 % (11.5-14.5); Red Blood Cell (RBC) Count 3.42 mill/uL (4.70-6.10); White Blood Cell (WBC) Count 23.6 10x3/uL (4.8-10.8)
[2023-03-08] MEDS: 1/2 NS w/KCL 20 mEq 1,000 ML IV SCH ×3 (07:02→23:23)
[2023-03-08 07:14] LABS: Phosphorus 3.6 mg/dL (2.3-4.7)
[2023-03-08 07:22] LABS: ALT (SGPT) 24 U/L (8-55); AST (SGOT) 17 U/L (5-34); Alkaline Phosphatase 70 U/L (40-110); Anion Gap 11 mmol/L (10-20); BUN (Urea Nitrogen) 27 mg/dL (8.4-25.7); Bilirubin, Total 0.3 mg/dL (0.2-1.2); Calc. Creatinine Clearance 148 mL/min (70-130); Calcium 8.1 mg/dL (7.8-10.44); Carbon Dioxide 22 mmol/L (22-29); Chloride 108 mmol/L (98-107); Estimated GFR 103; Globulin 2.1 g/dL (2.4-3.5); Glucose 102 mg/dL (70-105); Magnesium 1.8 mg/dL (1.6-2.6); Potassium 4.3 mmol/L (3.5-5.1); Protein, Total 5.1 g/dL (6.0-8.3); Sodium 137 mmol/L (136-145)
[2023-03-08] MEDS: Ascorbic Acid 500 mg Chewable Tablet PO SCH (08:53)
[2023-03-08] MEDS: Colchicine 0.6 MG TAB PO SCH (08:54)
[2023-03-08] MEDS: Losartan 25 MG TAB PO SCH ×2 (08:54→20:33)
[2023-03-08] MEDS: Tacrolimus 1 MG CAP PO SCH ×2 (08:54→20:34)
[2023-03-08] MEDS: Cholecalciferol 1,000 UNITS (25 MCG) TAB PO SCH (08:54)
[2023-03-08] MEDS: Ferrous Gluconate 324 MG TAB PO SCH ×2 (08:54→20:33)
[2023-03-08] MEDS: cloNIDine 0.1 MG TAB PO SCH ×2 (08:54→20:33)
[2023-03-08] MEDS: Furosemide 40 MG TAB PO SCH ×2 (08:55→14:08)
[2023-03-08] MEDS: Cyanocobalamin (Vitamin B-12) 1,000 MCG TAB PO SCH (08:55)
[2023-03-08] MEDS: Multivitamin W/ Minerals 1 TAB PO SCH (08:55)
[2023-03-08] MEDS: Potassium Chloride 20 MEQ TAB PO SCH (08:55)
[2023-03-08] MEDS: Senokot S 8.6-50 MG TAB PO SCH ×2 (08:55→20:33)
[2023-03-08] MEDS: Zinc Sulfate 220 MG CAP PO SCH (08:55)
[2023-03-08] MEDS: Allopurinol 100 MG TAB PO SCH (08:55)
[2023-03-08] MEDS: predniSONE 20 MG TAB PO SCH (08:56)
[2023-03-08] MEDS ORDERED: Rivaroxaban 10 MG TAB PO SCH (17:00)
[2023-03-08] MEDS: Atorvastatin Calcium 20 MG TAB PO SCH (20:33)
[2023-03-08] MEDS: Zolpidem Tartrate 5 MG TAB PO PRN (22:41)
[2023-03-09] MEDS: HYDROcodone/Acetaminophen 10/325 mg Tablet PO PRN ×3 (05:12→13:03)
[2023-03-09] MEDS: cloNIDine 0.1 MG TAB PO SCH (05:13)
[2023-03-09] MEDS: Losartan 25 MG TAB PO SCH (05:13)
[2023-03-09 07:12] LABS: Hemoglobin 10.2 g/dL (14.0-18.0); Mean Corpuscular HGB CONC 34.7 g/dL (32.0-36.0); Mean Corpuscular Hemoglobin 29.7 pg (27.0-31.0); Mean Corpuscular Volume 85.5 fl (78.0-98.0); Mean Platelet Volume 10.4 fL (7.4-10.4); Platelet Count 250 10x3/uL (130-400); Red Blood Cell (RBC) Count 3.44 mill/uL (4.70-6.10); White Blood Cell (WBC) Count 19.4 10x3/uL (4.8-10.8)
[2023-03-09 07:35] LABS: Anion Gap 11 mmol/L (10-20); BUN (Urea Nitrogen) 24 mg/dL (8.4-25.7); Calc. Creatinine Clearance 148 mL/min (70-130); Calcium 8.6 mg/dL (7.8-10.44); Carbon Dioxide 26 mmol/L (22-29); Chloride 107 mmol/L (98-107); Estimated GFR 103; Glucose 109 mg/dL (70-105); Potassium 4.3 mmol/L (3.5-5.1); Sodium 140 mmol/L (136-145)
[2023-03-09] MEDS: Colchicine 0.6 MG TAB PO SCH (08:59)
[2023-03-09] MEDS: Tacrolimus 1 MG CAP PO SCH (08:59)
[2023-03-09] MEDS: Cyanocobalamin (Vitamin B-12) 1,000 MCG TAB PO SCH (08:59)
[2023-03-09] MEDS: Ascorbic Acid 500 mg Chewable Tablet PO SCH (08:59)
[2023-03-09] MEDS: Potassium Chloride 20 MEQ TAB PO SCH (08:59)
[2023-03-09] MEDS: Ferrous Gluconate 324 MG TAB PO SCH (08:59)
[2023-03-09] MEDS: Furosemide 40 MG TAB PO SCH (09:00)
[2023-03-09] MEDS: Multivitamin W/ Minerals 1 TAB PO SCH (09:00)
[2023-03-09] MEDS: Zinc Sulfate 220 MG CAP PO SCH (09:00)
[2023-03-09] MEDS: predniSONE 20 MG TAB PO SCH (09:00)
[2023-03-09] MEDS: Cholecalciferol 1,000 UNITS (25 MCG) TAB PO SCH (09:00)
[2023-03-09] MEDS: Allopurinol 100 MG TAB PO SCH (09:00)
[2023-03-09] MEDS: Senokot S 8.6-50 MG TAB PO SCH (09:04)
[2023-03-09 11:49] VITALS: BP 173/94; TEMP 98.8
== END 2023-03-09 13:12 | disposition home or self-care (01) ==
LOC: SDC 05:31 → SURG A 13:55
PROVIDERS: ADMIT Orthopaedic Surgery; ATTEND Internal Medicine
PROC: 0SRD0JZ Replacement of Left Knee Joint with Synthetic Substitute, Open Approach (ICD-10-PCS; principal; 2023-03-09)
DX: M17.11 Unilateral primary osteoarthritis, right knee (principal); N18.9 Chronic kidney disease, unspecified; I26.99 Other pulmonary embolism without acute cor pulmonale; D72.829 Elevated white blood cell count, unspecified; I12.9 Hypertensive chronic kidney disease with stage 1 through stage 4 chronic kidney disease, or unspecified chronic kidney disease; M10.9 Gout, unspecified; R60.0 Localized edema; E78.5 Hyperlipidemia, unspecified; E66.9 Obesity, unspecified; Z79.899 Other long term (current) drug therapy; Z68.36 Body mass index [BMI] 36.0-36.9, adult
CPT/HCPCS: 36415; 80048; 80053; 83735; 84100; 85027; A4306; C1776; J0360; J1100; J1170; J1885; J2250; J2405; J2704; J2795; J3010; J3370; J3480; J3490; J7507; J7512; S0020

== ENCOUNTER 2023-06-22 10:09 | Outpatient (CLI) | payer BC ==
[2023-06-22 12:50] LABS: #Basophils 0.1 10x3/uL (0.0-0.2); #Eosinphils 0.1 10x3/uL (0.0-0.5); #Monocytes 1.1 10x3/uL (0.0-1.1); #Neutrophils 11.4 10x3/uL (1.5-8.4); %Basophils 0.3 % (0.0-2.0); %Eosinophils 0.8 % (0.0-6.0); %Lymphocytes 12.4 % (18.0-47.0); %Monocytes 7.3 % (0.0-10.0); %Neutrophils 78.6 % (40.0-75.0); Hematocrit 37.5 % (38.8-50.0); Mean Corpuscular HGB CONC 34.7 g/dL (32.0-36.0); Mean Corpuscular Hemoglobin 29.1 pg (27.0-33.0); Mean Corpuscular Volume 83.9 fl (81.2-95.1); Mean Platelet Volume 10.4 fl (7.4-10.4); Platelet Count 366 10x3/uL (150-450); RBC Distribution Width 16.7 % (11.5-14.5); Red Blood Cell (RBC) Count 4.47 10x6/uL (4.32-5.72); White Blood Cell (WBC) Count 14.6 10x3/uL (3.5-10.5)
[2023-06-22 13:14] LABS: Anion Gap 14 mmol/L (10-20); BUN (Urea Nitrogen) 31 mg/dL (8.4-25.7); Calc. Creatinine Clearance 0 mL/min (70-130); Calcium 8.8 mg/dL (7.8-10.44); Carbon Dioxide 26 mmol/L (22-29); Chloride 107 mmol/L (98-107); Estimated GFR 68; Glucose 108 mg/dL (70-105); Potassium 5.1 mmol/L (3.5-5.1); Sodium 142 mmol/L (136-145)
[2023-06-22 13:15] LABS: INR-International Normal Ratio 1.1; Prothrombin Time 12.1 sec (9.5-12.1)
== END 2023-06-22 10:10 | disposition home or self-care (01) ==
LOC: LABBT 10:09
PROVIDERS: ATTEND Orthopaedic Surgery
DX: Z01.818 Encounter for other preprocedural examination (principal); M17.11 Unilateral primary osteoarthritis, right knee
CPT/HCPCS: 80048; 85025; 85610; 87081; 93005; 93010

== ENCOUNTER 2023-06-27 06:10 | Inpatient (IN) | payer BC ==
[2023-06-22 11:18] VITALS: BMI 35.4
[2023-06-27] MEDS ORDERED: Vancomycin (BATCH) 1.5 GM/300 ML BAG ONE (07:49)
[2023-06-27] MEDS ORDERED: Sodium Chloride 0.9% 100 ML ONE ×3 (07:49→17:05)
[2023-06-27] MEDS ORDERED: Tranexamic Acid 1,000 MG/10 ML VIAL ONE (07:49)
[2023-06-27] MEDS ORDERED: Midazolam HCl 2 mg/2 ml Vial ONE (08:55)
[2023-06-27] MEDS ORDERED: Bupivacaine PF 0.5% 30 ML VIAL ONE (08:55)
[2023-06-27] MEDS ORDERED: fentaNYL 50 mcg/mL 1 mL Vial ONE (08:55)
[2023-06-27] MEDS ORDERED: CEFAZOLIN 2 GM VIAL ONE ×2 (09:16→17:04)
[2023-06-27] MEDS ORDERED: Ondansetron PF 4 MG/2 ML Vial IVP PRN ×2 (09:22→09:45)
[2023-06-27] MEDS ORDERED: Acetaminophen 325 MG TAB PO PRN (09:22)
[2023-06-27] MEDS ORDERED: Promethazine HCl 25 MG/ML VIAL IM PRN ×3 (09:22→10:26)
[2023-06-27] MEDS ORDERED: Zolpidem Tartrate 5 MG TAB PO PRN ×2 (09:22→09:45)
[2023-06-27] MEDS ORDERED: diphenhydrAMINE 25 MG CAP PO PRN (09:22)
[2023-06-27] MEDS ORDERED: fentaNYL PF 100 MCG/2 ML SYRINGE ONE (09:28)
[2023-06-27] MEDS ORDERED: Famotidine/PF 20 mg/2ml Vial ONE (09:28)
[2023-06-27] MEDS ORDERED: fentaNYL 50 mcg/mL 1 mL Vial SLOW IVP PRN (09:37)
[2023-06-27] MEDS ORDERED: Ropivacaine 0.2% 550 ML 550 ML NERVE BLCK SCH (09:45)
[2023-06-27] MEDS ORDERED: traMADol HCl 50 MG TAB PO PRN ×2 (09:45)
[2023-06-27] MEDS ORDERED: Ketorolac Tromethamine 30 MG/ML VIAL IVP PRN (09:45)
[2023-06-27] MEDS ORDERED: HYDROcodone/Acetaminophen 10/325 mg Tablet PO PRN (09:45)
[2023-06-27] MEDS ORDERED: Bupivacaine HCl 0.5%/Epinephrine 1:200,000/PF 30 ml Vial ONE (09:48)
[2023-06-27] MEDS ORDERED: Lidocaine 1% PF 5 ML VIAL ONE (09:48)
[2023-06-27] MEDS ORDERED: Ondansetron PF 4 MG/2 ML Vial ONE (09:48)
[2023-06-27] MEDS ORDERED: Dexamethasone 20 MG/5 ML VIAL ONE (09:48)
[2023-06-27] MEDS ORDERED: PROPOFOL 200 MG/20 ML VIAL ONE (09:48)
[2023-06-27] MEDS ORDERED: HYDROmorphone 2 MG/ML VIAL SLOW IVP PRN (10:26)
[2023-06-27] MEDS ORDERED: Ondansetron HCl/PF 4 MG/2 ML Vial IVP PRN (10:26)
[2023-06-27] MEDS ORDERED: Meperidine HCl/PF 25 MG/ML VIAL SLOW IVP PRN (10:26)
[2023-06-27] MEDS ORDERED: HYDROmorphone 2 MG/ML VIAL ONE ×2 (10:28→10:44)
[2023-06-27] MEDS ORDERED: hydrALAZINE 20 MG/ML VIAL ONE (12:03)
[2023-06-27] MEDS ORDERED: Labetalol HCl 100 MG/20 ML VIAL ONE (15:09)
[2023-06-27] MEDS ORDERED: cloNIDine 0.1 MG TAB ONE (16:09)
[2023-06-27] MEDS ORDERED: HYDROcodone/Acetaminophen 10/325 mg Tablet ONE (17:04)
[2023-06-27] MEDS ORDERED: Ketorolac Tromethamine 30 MG/ML VIAL ONE (17:04)
[2023-06-27] MEDS: HYDROcodone/Acetaminophen 10/325 mg Tablet PO PRN ×2 (17:07→21:35)
[2023-06-27] MEDS: CEFAZOLIN 2 GM in Sodium Chloride 0.9% 100 ML IVPB SCH (17:08)
[2023-06-27] MEDS: Senokot S 8.6-50 MG TAB PO SCH (21:35)
[2023-06-27] MEDS: Ferrous Gluconate 324 MG TAB PO SCH (21:35)
[2023-06-27] MEDS ORDERED: Losartan 25 MG TAB PO SCH (23:15)
[2023-06-27] MEDS ORDERED: cloNIDine 0.1 MG TAB PO SCH (23:30)
[2023-06-27] MEDS ORDERED: Terazosin HCl 1 MG CAP PO SCH (23:30)
[2023-06-28] MEDS: Sodium Chloride 0.9% 1,000 ML IV SCH ×4 (00:22→23:41)
[2023-06-28] MEDS: CEFAZOLIN 2 GM in Sodium Chloride 0.9% 100 ML IVPB SCH (01:27)
[2023-06-28 04:57] LABS: #Eosinphils 0.1 thou/uL (0.0-0.7); #Monocytes 2.4 thou/uL (0.11-0.59); #Neutrophils 10.4 thou/uL (1.40-6.50); %Basophils 0.2 % (0.0-1.0); %Eosinophils 0.6 % (0.0-10.0); %Lymphocytes 14.1 % (21.0-51.0); %Neutrophils 68.6 % (42.0-75.0); Hematocrit 29.3 % (42.0-52.0); Hemoglobin 10.1 g/dL (14.0-18.0); Mean Corpuscular HGB CONC 34.5 g/dL (32.0-36.0); Mean Corpuscular Hemoglobin 29.7 pg (27.0-31.0); Mean Corpuscular Volume 86.2 fl (78.0-98.0); Mean Platelet Volume 10.3 fL (7.4-10.4); Platelet Count 263 10x3/uL (130-400); RBC Distribution Width 16.7 % (11.5-14.5); White Blood Cell (WBC) Count 15.1 10x3/uL (4.8-10.8)
[2023-06-28 05:24] LABS: ALT (SGPT) 22 U/L (8-55); AST (SGOT) 16 U/L (5-34); Albumin 2.8 g/dL (3.5-5.0); Alkaline Phosphatase 68 U/L (40-110); Anion Gap 12 mmol/L (10-20); BUN (Urea Nitrogen) 29 mg/dL (8.4-25.7); Bilirubin, Total 0.4 mg/dL (0.2-1.2); Calc. Creatinine Clearance 76 mL/min (70-130); Calcium 7.8 mg/dL (7.8-10.44); Carbon Dioxide 23 mmol/L (22-29); Chloride 107 mmol/L (98-107); Estimated GFR 50; Globulin 1.9 g/dL (2.4-3.5); Glucose 103 mg/dL (70-105); Potassium 4.2 mmol/L (3.5-5.1); Protein, Total 4.7 g/dL (6.0-8.3); Sodium 138 mmol/L (136-145)
[2023-06-28] MEDS: HYDROcodone/Acetaminophen 10/325 mg Tablet PO PRN ×3 (06:13→20:00)
[2023-06-28] MEDS: Lactated Ringer's 1,000 ML IV SCH ×2 (09:37→19:04)
[2023-06-28] MEDS: Potassium Chloride 20 MEQ TAB PO SCH (09:38)
[2023-06-28] MEDS: Cyanocobalamin (Vitamin B-12) 1,000 MCG TAB PO SCH (09:39)
[2023-06-28] MEDS: Colchicine 0.6 MG TAB PO SCH (09:39)
[2023-06-28] MEDS: Rivaroxaban 10 MG TAB PO SCH (09:39)
[2023-06-28] MEDS: Ferrous Gluconate 324 MG TAB PO SCH ×2 (09:39→19:58)
[2023-06-28] MEDS: Multivitamin W/ Minerals 1 TAB PO SCH (09:39)
[2023-06-28] MEDS: Senokot S 8.6-50 MG TAB PO SCH ×2 (09:39→19:58)
[2023-06-28] MEDS: Tacrolimus 1 MG CAP PO SCH ×2 (09:39→20:00)
[2023-06-28] MEDS: Zinc Sulfate 220 MG CAP PO SCH (09:39)
[2023-06-28] MEDS: Allopurinol 100 MG TAB PO SCH (09:40)
[2023-06-28] MEDS: Losartan 25 MG TAB PO SCH ×2 (09:40→19:59)
[2023-06-28] MEDS: predniSONE 5 MG TAB PO SCH (09:40)
[2023-06-28] MEDS: Ascorbic Acid 500 mg Chewable Tablet PO SCH (09:40)
[2023-06-28] MEDS: cloNIDine 0.1 MG TAB PO SCH ×2 (09:40→19:59)
[2023-06-28] MEDS: Cholecalciferol 1,000 UNITS (25 MCG) TAB PO SCH (09:40)
[2023-06-28] MEDS: Furosemide 40 MG TAB PO SCH ×2 (09:40→14:49)
[2023-06-28] MEDS: Atorvastatin Calcium 20 MG TAB PO SCH (19:58)
[2023-06-28] MEDS: Terazosin HCl 1 MG CAP PO SCH (20:00)
[2023-06-29] MEDS: HYDROcodone/Acetaminophen 10/325 mg Tablet PO PRN ×3 (04:38→18:02)
[2023-06-29 05:45] LABS: #Eosinphils 0.5 thou/uL (0.0-0.7); #Monocytes 2.6 thou/uL (0.11-0.59); #Neutrophils 9.7 thou/uL (1.40-6.50); %Basophils 0.3 % (0.0-1.0); %Eosinophils 3.1 % (0.0-10.0); %Lymphocytes 14.3 % (21.0-51.0); %Monocytes 17.1 % (0.0-10.0); %Neutrophils 64.7 % (42.0-75.0); Hematocrit 27.3 % (42.0-52.0); Hemoglobin 9.6 g/dL (14.0-18.0); Mean Corpuscular HGB CONC 35.2 g/dL (32.0-36.0); Mean Corpuscular Hemoglobin 29.9 pg (27.0-31.0); Mean Platelet Volume 10.5 fL (7.4-10.4); Platelet Count 255 10x3/uL (130-400); RBC Distribution Width 16.4 % (11.5-14.5); Red Blood Cell (RBC) Count 3.21 mill/uL (4.70-6.10)
[2023-06-29 06:07] LABS: Anion Gap 9 mmol/L (10-20); BUN (Urea Nitrogen) 30 mg/dL (8.4-25.7); Calc. Creatinine Clearance 92 mL/min (70-130); Calcium 8.3 mg/dL (7.8-10.44); Carbon Dioxide 27 mmol/L (22-29); Chloride 106 mmol/L (98-107); Estimated GFR 62; Glucose 103 mg/dL (70-105); Sodium 138 mmol/L (136-145)
[2023-06-29] MEDS: Senokot S 8.6-50 MG TAB PO SCH ×2 (08:37→21:21)
[2023-06-29] MEDS: Tacrolimus 1 MG CAP PO SCH ×2 (08:38→21:20)
[2023-06-29] MEDS: Ascorbic Acid 500 mg Chewable Tablet PO SCH (08:38)
[2023-06-29] MEDS: predniSONE 5 MG TAB PO SCH (08:38)
[2023-06-29] MEDS: Ferrous Gluconate 324 MG TAB PO SCH ×2 (08:40→21:20)
[2023-06-29] MEDS: Colchicine 0.6 MG TAB PO SCH (08:40)
[2023-06-29] MEDS: Multivitamin W/ Minerals 1 TAB PO SCH (08:40)
[2023-06-29] MEDS: cloNIDine 0.1 MG TAB PO SCH ×2 (08:40→21:20)
[2023-06-29] MEDS: Cyanocobalamin (Vitamin B-12) 1,000 MCG TAB PO SCH (08:40)
[2023-06-29] MEDS: Potassium Chloride 20 MEQ TAB PO SCH (08:40)
[2023-06-29] MEDS: Furosemide 40 MG TAB PO SCH ×2 (08:40→14:03)
[2023-06-29] MEDS: Rivaroxaban 10 MG TAB PO SCH (08:41)
[2023-06-29] MEDS: Allopurinol 100 MG TAB PO SCH (08:41)
[2023-06-29] MEDS: Cholecalciferol 1,000 UNITS (25 MCG) TAB PO SCH (08:41)
[2023-06-29] MEDS: Losartan 25 MG TAB PO SCH ×2 (08:44→21:21)
[2023-06-29] MEDS: Zinc Sulfate 220 MG CAP PO SCH (08:45)
[2023-06-29] MEDS ORDERED: hydrALAZINE 20 MG/ML VIAL SLOW IVP PRN (09:07)
[2023-06-29] MEDS ORDERED: Amlodipine 5 MG TAB PO SCH (13:45)
[2023-06-29] MEDS: Terazosin HCl 1 MG CAP PO SCH (21:20)
[2023-06-29] MEDS: Atorvastatin Calcium 20 MG TAB PO SCH (21:20)
[2023-06-29] MEDS: Amlodipine 5 MG TAB PO SCH (21:21)
[2023-06-30 05:14] LABS: Hematocrit 25.8 % (42.0-52.0); Hemoglobin 9.1 g/dL (14.0-18.0); Mean Corpuscular HGB CONC 35.3 g/dL (32.0-36.0); Mean Corpuscular Hemoglobin 30.1 pg (27.0-31.0); Mean Corpuscular Volume 85.4 fl (78.0-98.0); Mean Platelet Volume 10.4 fL (7.4-10.4); Platelet Count 226 10x3/uL (130-400); RBC Distribution Width 16.2 % (11.5-14.5); Red Blood Cell (RBC) Count 3.02 mill/uL (4.70-6.10); White Blood Cell (WBC) Count 13.8 10x3/uL (4.8-10.8)
[2023-06-30] MEDS: Tacrolimus 1 MG CAP PO SCH (08:21)
[2023-06-30] MEDS: Allopurinol 100 MG TAB PO SCH (08:22)
[2023-06-30] MEDS: cloNIDine 0.1 MG TAB PO SCH (08:22)
[2023-06-30] MEDS: Ascorbic Acid 500 mg Chewable Tablet PO SCH (08:22)
[2023-06-30] MEDS: Rivaroxaban 10 MG TAB PO SCH (08:22)
[2023-06-30] MEDS: Potassium Chloride 20 MEQ TAB PO SCH (08:24)
[2023-06-30] MEDS: Furosemide 40 MG TAB PO SCH (08:24)
[2023-06-30] MEDS: Multivitamin W/ Minerals 1 TAB PO SCH (08:24)
[2023-06-30] MEDS: Cholecalciferol 1,000 UNITS (25 MCG) TAB PO SCH (08:24)
[2023-06-30] MEDS: Cyanocobalamin (Vitamin B-12) 1,000 MCG TAB PO SCH (08:24)
[2023-06-30] MEDS: Colchicine 0.6 MG TAB PO SCH (08:25)
[2023-06-30] MEDS: Losartan 25 MG TAB PO SCH (08:25)
[2023-06-30] MEDS: predniSONE 5 MG TAB PO SCH (08:25)
[2023-06-30] MEDS: Zinc Sulfate 220 MG CAP PO SCH (08:25)
[2023-06-30] MEDS: Ferrous Gluconate 324 MG TAB PO SCH (08:25)
[2023-06-30] MEDS: Amlodipine 5 MG TAB PO SCH (08:26)
[2023-06-30] MEDS: Senokot S 8.6-50 MG TAB PO SCH (08:34)
[2023-06-30] MEDS: HYDROcodone/Acetaminophen 10/325 mg Tablet PO PRN (08:47)
[2023-06-30 11:41] VITALS: BP 143/87; TEMP 98.5
== END 2023-06-30 11:56 | disposition home or self-care (01) | DRG 982 ==
LOC: SDC 06:10 → SURG B 18:35 → OBSVTOIN 06-29 12:53
PROVIDERS: ADMIT Orthopaedic Surgery; ATTEND Orthopaedic Surgery
PROC: 0SRC0J9 Replacement of Right Knee Joint with Synthetic Substitute, Cemented, Open Approach (ICD-10-PCS; principal; 2023-06-27)
DX: I16.0 Hypertensive urgency (principal); D62 Acute posthemorrhagic anemia; M17.11 Unilateral primary osteoarthritis, right knee; E78.5 Hyperlipidemia, unspecified; I12.9 Hypertensive chronic kidney disease with stage 1 through stage 4 chronic kidney disease, or unspecified chronic kidney disease; M10.9 Gout, unspecified; N18.30 Chronic kidney disease, stage 3 unspecified; K21.9 Gastro-esophageal reflux disease without esophagitis; Z96.652 Presence of left artificial knee joint; F17.210 Nicotine dependence, cigarettes, uncomplicated; D63.1 Anemia in chronic kidney disease; Z86.711 Personal history of pulmonary embolism; Z86.718 Personal history of other venous thrombosis and embolism; Z79.01 Long term (current) use of anticoagulants; Z98.890 Other specified postprocedural states
CPT/HCPCS: 36415; 80048; 80053; 85027; 93970; A4306; C1776; J0360; J1100; J1170; J1885; J2250; J2405; J2704; J2795; J3010; J3370; J3490; J7507; J7512; S0020; S0028

== ENCOUNTER 2024-06-02 10:34 | Inpatient (IN) | payer BC ==
[2024-06-02] MEDS ORDERED: Senokot S 8.6-50 MG TAB PO PRN (15:18)
[2024-06-02] MEDS ORDERED: Acetaminophen 325 MG TAB PO PRN (15:18)
[2024-06-02] MEDS ORDERED: Calcium Carbonate 500 MG ChewTAB PO PRN (15:18)
[2024-06-02 15:35] VITALS: BMI 36.7
[2024-06-02] MEDS ORDERED: Nitroglycerin 0.4 MG TAB (25 Tab Bottle) SL PRN (15:39)
[2024-06-02] MEDS: cloNIDine 0.1 MG TAB PO SCH (16:09)
[2024-06-02] MEDS: cloNIDine 0.2 MG TAB PO SCH (20:25)
[2024-06-02] MEDS: Atorvastatin Calcium 40 MG TAB PO SCH (20:25)
[2024-06-02] MEDS: Tacrolimus 1 MG CAP PO SCH (20:26)
[2024-06-02] MEDS: Allopurinol 100 MG TAB PO SCH (20:26)
[2024-06-02] MEDS: Terazosin HCl 5 MG CAP PO SCH (20:26)
[2024-06-02] MEDS: Melatonin 3 MG TAB PO PRN (20:34)
[2024-06-03] MEDS: hydrALAZINE 20 MG/ML VIAL SLOW IVP PRN (03:41)
[2024-06-03 04:21] LABS: #Basophils 0.04 10x3/uL (0.0-0.2); %Basophils 0.3 % (0.0-1.0); %Eosinophils 2.2 % (0.0-10.0); %Lymphocytes 23.6 % (21.0-51.0); %Monocytes 13.2 % (0.0-10.0); %Neutrophils 60.2 % (42.0-75.0); Hematocrit 28.4 % (42.0-52.0); Hemoglobin 9.9 g/dL (14.0-18.0); Mean Corpuscular HGB CONC 34.9 g/dL (32.0-36.0); Mean Corpuscular Hemoglobin 28.9 pg (27.0-31.0); Platelet Count 268 10x3/uL (130-400); Red Blood Cell (RBC) Count 3.42 mill/uL (4.70-6.10)
[2024-06-03 04:34] LABS: Anion Gap 10 mmol/L (10-20); BUN (Urea Nitrogen) 25 mg/dL (8.4-25.7); Calc. Creatinine Clearance 94 mL/min (70-130); Carbon Dioxide 24 mmol/L (22-29); Chloride 108 mmol/L (98-107); Estimated GFR 62; Glucose 88 mg/dL (70-105); Sodium 138 mmol/L (136-145)
[2024-06-03] MEDS: Furosemide 40 MG TAB PO SCH (08:50)
[2024-06-03] MEDS: Cholecalciferol 1,000 UNITS (25 MCG) TAB PO SCH (08:50)
[2024-06-03] MEDS: NIFEdipine XL 60 MG ER.TAB PO SCH (08:50)
[2024-06-03] MEDS: Losartan 25 MG TAB PO SCH (08:51)
[2024-06-03] MEDS: Cyanocobalamin (Vitamin B-12) 1,000 MCG TAB PO SCH (08:51)
[2024-06-03] MEDS: Pantoprazole DR 40 MG TAB PO SCH (08:51)
[2024-06-03] MEDS: predniSONE 5 MG TAB PO SCH (09:01)
[2024-06-03] MEDS ORDERED: Regadenoson 0.4 MG/5 ML SYRINGE ONE (10:10)
[2024-06-03 15:35] VITALS: BP 160/85; TEMP 98.4
[2024-06-03] MEDS ORDERED: Rivaroxaban 10 MG TAB PO SCH (17:00)
[2024-06-05] MEDS ORDERED: FLU (Fluarix Triv) TS24-25(6MOS UP)/PF 45 MCG/0.5 ML Syringe IM ONE (16:00)
== END 2024-06-03 17:20 | disposition home or self-care (01) | DRG 305 ==
LOC: 2SW 14:55
PROVIDERS: ADMIT Internal Medicine; ATTEND Family Medicine
DX: I16.0 Hypertensive urgency (principal); N17.9 Acute kidney failure, unspecified; R07.9 Chest pain, unspecified; N18.30 Chronic kidney disease, stage 3 unspecified; E66.9 Obesity, unspecified; Z68.33 Body mass index [BMI] 33.0-33.9, adult; D64.9 Anemia, unspecified; I12.9 Hypertensive chronic kidney disease with stage 1 through stage 4 chronic kidney disease, or unspecified chronic kidney disease; Z79.01 Long term (current) use of anticoagulants; Z79.899 Other long term (current) drug therapy; Z86.711 Personal history of pulmonary embolism; N26.9 Renal sclerosis, unspecified
CPT/HCPCS: 36415; 78452; 80048; 85025; 93017; A9500; J0360; J2785; J7507; J7512

== ENCOUNTER 2025-04-04 07:31 | Outpatient (CLI) | payer BC | END 2025-04-04 07:32 | disposition home or self-care (01) | LOC: BICULT 07:31 | PROVIDERS: ATTEND Internal Medicine Gastroenterology | DX: K21.9 Gastro-esophageal reflux disease without esophagitis (principal); R10.13 Epigastric pain; K86.2 Cyst of pancreas | CPT/HCPCS: 76705 ==